=== PATIENT | female | born 1930 | race Caucasian/White ===

== ENCOUNTER → 2016-06-05 | Outpatient (REF) ==
[~2016-06-05] MED LIST: *BLDWK7; /ADVA50050; /ALEN70TA; /ALEN7SOL; /BACIOPOI; /GLYB5TA; /GUAIMAX PO; /MOXI40TA; /TIOT18INH; ACEP650S PR; ACET-71 PO; ACET30TAB PO; ACET500C; ACET650S3 PR; ACET65TA; ADV250INH INH; AKWASOL OU; ALBU0.084 INH; ALBU0.63 INH; ALBU83IN INH; ALBUTEROL; ALDA25TA2 PO; ALLO100T PO; AMLO10TAB; AMLO5TAB; ARTIDRO OU; ARTISOL10; ASP81 PO; ASPI81TA PO; ASPI81TA13 PO; ASPI81TA45 PO; ASPI81TA83; ASPI81TA85 PO; ATEN100T; AUGM875T27 PO; AVAP150T31 PO; AVAP75TA PO; BABY81CH; BACITAB; BACITAB3 PO; BARRIER CREAM TOP; BISA10SU2; BYSTOLIC; CALC600T68 PO; CALCCHW12; CAPT12.5; CARV12.5 PO; CARV3.12 PO; CARV6.25 PO; CEFD1CAP8 PO; CEFU12SS; CIPR500T4; CLOP75TA2 PO; COEN100C PO; COENZYME; COLA100C2; CORE3.12; CORE3.12 PO; COZA100T2 PO; COZA25TA8; DARV100T; DEMA20TA; DICL500C; DILT180C3; DILT240C3; DOCU100C PO; DULC10SU2 PR; DULC10SU9 PR; DUONSOL; DUONSOL INH; ENEMENE3 PR; ENEMENE6 PR; EUCECRE12 TOP; FELDENE20 PO; FISHCAP; FLAG500T; FLEETS ENEMA; FOSAMAX70 PO; GABA-279 PO; GABA300C3 PO; GABA300T; GABA600T3; GLIP5TAB2; GLUC1000; GLUC500T; GLUC5TAB; GLUC5TAB3; HCTZ25 PO; HYDR25TA6; HYDR25TA7; HYDR50TA8; INSUH10VL SC; INSULADS SC; INSULANT; INSULANT SC; INSULIN NPH; IPRASOL4 INH; K-TA10TA; KEFL500C7 PO; KLOR1TAB77 PO; LAB; LASI20TA; LASI40TA; LEVA250T PO; LEVE1INJ5 SC; LEVO250T PO; LIPI20TA; LISI20TA5; LISINOPR20 PO; LOPRESS50 PO; LOSA100T36 PO; LOSA50TA20 PO; LOTREL PO; MAG-TAB; MECL12.575 PO; METF500T4; MEVACOR PO; MILKSUS; MILKSUS PO; MOM30SS PO; MONISTAT; MUCINEX; MULTCAP PO; MULTTAB63 PO; MYLASUS6 PO; MYSO50TA; MYSO50TA5 PO; NEUR300C; NORT10CA2; NORVASC10 PO; NOVOLOG SC; NOVOLOG100 MG/ML; NYSTATIN OINT; OMEP20TA7; OSCAL PO; OXYGEN INH; OYST500T50 PO; PAIN325T; PLAV75TA2; POTA20TA PO; POTA20TA2; POTA20TA6 PO; POTASSIUM CHLORIDE; PRED10TA PO; PRED10TA2; PRED10TA2 PO; PRED20TA; PRED50TA; PRED5TAB; PRIL20CA; PROV90AE; RANI1TAB6 PO; SANTYL OINTMENT; SENN8.6T14; SENN8.6T28 PO; SILVADENE; SIMV20TA2; SLOWTAB; SORBITOL; SPIR1CAP INH; SPIR25TA2; SPIR25TA2 PO; SPIRIVA INH; SYSTANE; TORS20TA2 PO; TYL325; TYLE167L PO; TYLE325T5 PO; VENTAER; VICO5TA PO; VITA-122 PO; VITAD1000T PO; VITAMIN D; VITAMIN D50000 UNT; VITMTA PO; XANA0.25; XOPE1.252; ZANT150T; ZANT150T PO; ZESTORET20 PO; ZOCO20TA PO; ZOLOFT50 PO; ZOSTCRE TOP; [UNRECOGNIZED DRUG - CODE] PO; [UNRECOGNIZED DRUG - OTHER]; [UNRECOGNIZED DRUG - OTHER]; [UNRECOGNIZED DRUG - OTHER] PO; [UNRECOGNIZED DRUG - OTHER] PO; [UNRECOGNIZED DRUG - OTHER] TOP; [UNRECOGNIZED DRUG - OTHER] TOP; [UNRECOGNIZED DRUG - REMARK]; [UNRECOGNIZED DRUG - REMARK]; [UNRECOGNIZED DRUG - SUPPLY]
[2016-06-05 11:09] LABS: MEAN CORPUSCULAR HEMOGLOBIN 28.7 pg (27.0-33.0); MEAN CORPUSCULAR HGB CONC 32.6 g/dl (32.0-36.5); MEAN CORPUSCULAR VOLUME 88.1 fl (80.0-96.0); RED CELL DISTRIBUTION WIDTH 14.9 % (11.5-14.5); WHITE BLOOD COUNT 7.6 K/mm3 (4.0-10.0)
[2016-06-05 11:42] LABS: CALCIUM LEVEL 9.2 MG/DL (8.8-10.2); CREATININE FOR GFR 2.04 MG/DL (0.55-1.02); GLOMERULAR FILTRATION RATE 24.7 (>32); POTASSIUM SERUM 3.9 MEQ/L (3.5-5.1)
== END ==
PROVIDERS: ATTEND Internal Medicine
DX: J44.9 Chronic obstructive pulmonary disease, unspecified (principal)

== ENCOUNTER → 2016-06-10 | Outpatient (REF) ==
[2016-06-10 13:13] LABS: CALCIUM LEVEL 8.6 MG/DL (8.8-10.2); CREATININE FOR GFR 1.88 MG/DL (0.55-1.02); GLOMERULAR FILTRATION RATE 27.1 (>32); POTASSIUM SERUM 4.5 MEQ/L (3.5-5.1)
== END ==
PROVIDERS: ATTEND Internal Medicine
DX: N19 Unspecified kidney failure (principal)

== ENCOUNTER → 2016-06-26 | Outpatient (REF) | payer MEDICARE, MEDICAID ==
[2016-06-26 10:50] LABS: MEAN CORPUSCULAR HEMOGLOBIN 27.7 pg (27.0-33.0); MEAN CORPUSCULAR HGB CONC 31.4 g/dl (32.0-36.5); RED CELL DISTRIBUTION WIDTH 15.2 % (11.5-14.5); WHITE BLOOD COUNT 9.8 K/mm3 (4.0-10.0)
[2016-06-26 11:06] LABS: CALCIUM LEVEL 8.9 MG/DL (8.8-10.2); CREATININE FOR GFR 1.93 MG/DL (0.55-1.02); GLOMERULAR FILTRATION RATE 26.3 (>32)
== END ==
PROVIDERS: ATTEND Internal Medicine
DX: J44.9 Chronic obstructive pulmonary disease, unspecified (principal)

== ENCOUNTER → 2016-07-01 | Outpatient (REF) | payer MEDICARE, MEDICAID ==
[2016-07-01 12:33] LABS: CALCIUM LEVEL 8.5 MG/DL (8.8-10.2); CREATININE FOR GFR 1.8 MG/DL (0.55-1.02); GLOMERULAR FILTRATION RATE 28.5 (>32); POTASSIUM SERUM 4.6 MEQ/L (3.5-5.1)
== END ==
PROVIDERS: ATTEND Internal Medicine
DX: N17.9 Acute kidney failure, unspecified (principal)

== ENCOUNTER → 2016-07-09 | Outpatient (REF) | payer MEDICARE, MEDICAID ==
[2016-07-09 12:36] LABS: MEAN CORPUSCULAR HEMOGLOBIN 27.8 pg (27.0-33.0); MEAN CORPUSCULAR HGB CONC 31.5 g/dl (32.0-36.5); MEAN CORPUSCULAR VOLUME 88.3 fl (80.0-96.0); RED CELL DISTRIBUTION WIDTH 15.3 % (11.5-14.5); WHITE BLOOD COUNT 13.1 K/mm3 (4.0-10.0)
[2016-07-09 12:45] LABS: CALCIUM LEVEL 8.6 MG/DL (8.8-10.2); CREATININE FOR GFR 2.14 MG/DL (0.55-1.02); GLOMERULAR FILTRATION RATE 23.4 (>32); POTASSIUM SERUM 3.9 MEQ/L (3.5-5.1)
== END ==
PROVIDERS: ATTEND Internal Medicine
DX: I50.9 Heart failure, unspecified (principal); Z79.899 Other long term (current) drug therapy

== ENCOUNTER → 2016-07-10 | Outpatient (REF) | payer MEDICARE, MEDICAID ==
--- NOTE | 2016-07-10 16:29 | REP ---
AP chest, 07/10/2016, 03:54 p.m., single view: Comparisons 05/08/2016. Film quality is poor. I suspect there is a left perihilar infiltrate and I suspect there is discoid atelectasis inferiorly in the right lung. Interstitium is diffusely coarsened and mildly indistinct compatible with diffuse bilateral interstitial infiltrates. Cardiomegaly is again noted, unchanged. Signed by Bradley Marquis MD 07/10/2016 04:20 P
== END ==
PROVIDERS: ATTEND Internal Medicine
DX: J44.9 Chronic obstructive pulmonary disease, unspecified (principal)

== ENCOUNTER → 2016-07-24 | Outpatient (REF) | payer MEDICARE, MEDICAID ==
[2016-07-24 10:09] LABS: MEAN CORPUSCULAR HEMOGLOBIN 27.3 pg (27.0-33.0); MEAN CORPUSCULAR HGB CONC 31.1 g/dl (32.0-36.5); MEAN CORPUSCULAR VOLUME 87.7 fl (80.0-96.0); RED CELL DISTRIBUTION WIDTH 15.2 % (11.5-14.5); WHITE BLOOD COUNT 7.9 K/mm3 (4.0-10.0)
[2016-07-24 10:36] LABS: CALCIUM LEVEL 8.5 MG/DL (8.8-10.2); CREATININE FOR GFR 2.06 MG/DL (0.55-1.02); GLOMERULAR FILTRATION RATE 24.4 (>32); POTASSIUM SERUM 3.7 MEQ/L (3.5-5.1)
== END ==
PROVIDERS: ATTEND Internal Medicine
DX: J44.9 Chronic obstructive pulmonary disease, unspecified (principal)

== ENCOUNTER → 2016-08-13 | Outpatient (REF) | payer MEDICARE, MEDICAID ==
[2016-08-13 17:52] LABS: CALCIUM LEVEL 8.3 MG/DL (8.8-10.2); CREATININE FOR GFR 2.18 MG/DL (0.55-1.02); GLOMERULAR FILTRATION RATE 22.9 (>32)
[2016-08-13 18:45] LABS: MEAN CORPUSCULAR HGB CONC 31.4 g/dl (32.0-36.5); MEAN CORPUSCULAR VOLUME 89.1 fl (80.0-96.0); RED CELL DISTRIBUTION WIDTH 15.5 % (11.5-14.5); WHITE BLOOD COUNT 6.9 K/mm3 (4.0-10.0)
== END ==
PROVIDERS: ATTEND Internal Medicine
DX: K92.1 Melena (principal)

== ENCOUNTER → 2016-08-14 | Outpatient (REF) | payer MEDICARE, MEDICAID ==
[2016-08-14 12:54] LABS: MEAN CORPUSCULAR HEMOGLOBIN 27.7 pg (27.0-33.0); MEAN CORPUSCULAR HGB CONC 31.2 g/dl (32.0-36.5); MEAN CORPUSCULAR VOLUME 88.9 fl (80.0-96.0); RED CELL DISTRIBUTION WIDTH 15.6 % (11.5-14.5)
== END ==
PROVIDERS: ATTEND Internal Medicine
DX: K92.1 Melena (principal)

== ENCOUNTER → 2016-08-15 | Outpatient (REF) | payer MEDICARE, MEDICAID ==
[2016-08-15 10:12] LABS: MEAN CORPUSCULAR HEMOGLOBIN 27.1 pg (27.0-33.0); MEAN CORPUSCULAR HGB CONC 30.7 g/dl (32.0-36.5); MEAN CORPUSCULAR VOLUME 88.3 fl (80.0-96.0); RED CELL DISTRIBUTION WIDTH 15.5 % (11.5-14.5); WHITE BLOOD COUNT 7.4 K/mm3 (4.0-10.0)
[2016-08-15 10:26] LABS: PERCENT SATURATION 8.7 % (13.2-37.4)
== END ==
PROVIDERS: ATTEND Internal Medicine
DX: K92.1 Melena (principal)

== ENCOUNTER → 2016-08-16 | Outpatient (REF) | payer MEDICARE, MEDICAID ==
[2016-08-16 10:43] LABS: MEAN CORPUSCULAR HEMOGLOBIN 27.6 pg (27.0-33.0); MEAN CORPUSCULAR HGB CONC 31.2 g/dl (32.0-36.5); MEAN CORPUSCULAR VOLUME 88.4 fl (80.0-96.0); RED CELL DISTRIBUTION WIDTH 15.7 % (11.5-14.5); WHITE BLOOD COUNT 7.6 K/mm3 (4.0-10.0)
== END ==
PROVIDERS: ATTEND Internal Medicine
DX: K92.1 Melena (principal)

== ENCOUNTER → 2016-08-22 | Outpatient (REF) | payer MEDICARE, MEDICAID ==
[~2016-08-22] MED LIST changes: +AMLO10TA PO; +GABA-282 PO; -GABA300C3 PO
[2016-08-22 14:17] LABS: CALCIUM LEVEL 8.4 MG/DL (8.8-10.2); CREATININE FOR GFR 1.86 MG/DL (0.55-1.02); GLOMERULAR FILTRATION RATE 27.5 (>32); POTASSIUM SERUM 4.5 MEQ/L (3.5-5.1)
--- NOTE | 2016-08-22 16:26 | REP ---
CHEST: Single AP view of the chest was performed and compared to prior studies, most of recent of which is 07/10/2016. Cardiomegaly and vascular congestion is unchanged as well as prominent interstitial markings. Once again there is mild bibasilar atelectasis/infiltrate, appearing similar to the prior exam. There is calcification and ectasia of the thoracic aorta. Patient is rotated toward the right. IMPRESSION: Similar findings compared to prior studies as discussed above, with CHF pattern and bibasilar atelectasis/infiltrate. Signed by Bradley Cardenas MD 08/23/2016 01:22 P
== END ==
PROVIDERS: ATTEND Internal Medicine
DX: I50.9 Heart failure, unspecified (principal); R05 Cough; R06.2 Wheezing

== ENCOUNTER → 2016-08-26 | Outpatient (REF) | payer MEDICARE, MEDICAID ==
[~2016-08-26] MED LIST changes: -AMLO10TA PO; -GABA-282 PO; +GABA300C3 PO
[2016-08-26 13:58] LABS: MEAN CORPUSCULAR HEMOGLOBIN 27.4 pg (27.0-33.0); MEAN CORPUSCULAR HGB CONC 30.7 g/dl (32.0-36.5); MEAN CORPUSCULAR VOLUME 89.2 fl (80.0-96.0); RED CELL DISTRIBUTION WIDTH 15.7 % (11.5-14.5); WHITE BLOOD COUNT 8.8 K/mm3 (4.0-10.0)
[2016-08-26 14:00] LABS: CALCIUM LEVEL 8.8 MG/DL (8.8-10.2); CREATININE FOR GFR 2.29 MG/DL (0.55-1.02); GLOMERULAR FILTRATION RATE 21.6 (>32); POTASSIUM SERUM 4.5 MEQ/L (3.5-5.1)
== END ==
PROVIDERS: ATTEND Internal Medicine
DX: I50.9 Heart failure, unspecified (principal)

== ENCOUNTER 2016-09-12 12:40 | Emergency (ER) | payer MEDICARE, MEDICAID ==
[~2016-09-12] VITALS: Ht 152.4 cm; Wt 82.6 kg
[~2016-09-12 12:40] MED LIST changes: +GABA-282 PO; -GABA300C3 PO
[2016-09-12] MEDS ORDERED: AMLO10TA PO (12:55)
[2016-09-12] MEDS ORDERED: ONDANSETRON 4MG/2ML VIAL (J2405) IV ONE (13:45)
[2016-09-12] MEDS ORDERED: MORPHINE 2 MG/ML 1ML SYRINGE IV PRN (13:45)
[2016-09-12 14:07] LABS: ALBUMIN 3.8 GM/DL (3.2-5.2); ALBUMIN/GLOBULIN RATIO 1.27 (1.00-1.93); BILIRUBIN,DIRECT 0.1 MG/DL (0.0-0.2); BILIRUBIN,TOTAL 0.4 MG/DL (0.2-1.0); CALCIUM LEVEL 9.2 MG/DL (8.8-10.2); CREATININE FOR GFR 2.09 MG/DL (0.55-1.02); POTASSIUM SERUM 4.7 MEQ/L (3.5-5.1); TOTAL PROTEIN 6.8 GM/DL (6.4-8.2)
[2016-09-12 14:14] LABS: BASO % 0.4 % (0.0-1.0); EOS # 0.1 K/mm3 (0.0-0.50); EOS % 1.7 % (0.0-3.0); LARGE UNSTAINED CELL # 0.1 K/mm3 (0.0-0.4); LYMPH # 1.4 K/mm3 (1.5-4.5); LYMPH % 14.8 % (24.0-44.0); MEAN CORPUSCULAR HGB CONC 31.3 g/dl (32.0-36.5); MEAN CORPUSCULAR VOLUME 89.4 fl (80.0-96.0); MONO # 0.6 K/mm3 (0.0-0.8); MONO % 6.5 % (0.0-5.0); NEUTROPHILS # 6.5 K/mm3 (1.8-7.7); NEUTROPHILS % 75.6 % (36.0-66.0); PLATELET COUNT, AUTOMATED 186 k/mm3 (150-450); RED CELL DISTRIBUTION WIDTH 16.5 % (11.5-14.5); WHITE BLOOD COUNT 8.6 K/mm3 (4.0-10.0)
--- NOTE | 2016-09-12 15:47 | REP ---
Acute abdominal series series including PA chest and supine upright abdomen: PA chest: Comparison is 02/26/2016. There is chronic cardiomegaly, unchanged. The visualized lung schulz are clear. No pleural effusions. There is no free subdiaphragmatic air. Impression: Chronic cardiomegaly. Abdomen, supine upright views: There is severe scoliosis convex right in the lower thoracic spine and left in the lumbar spine. The bowel gas pattern is normal. There are no unusual calcifications. The skeletal structures and soft tissues are otherwise unremarkable. Impression: Normal bowel gas pattern. Signed by Bradley Marquis MD 09/12/2016 03:38 P
[2016-09-12] MEDS ORDERED: GASTROGRAFIN SOLUTION 30ML PO ONE (16:50)
[2016-09-12] MEDS ORDERED: GASTROGRAFIN SOLUTION 30ML (Q9963) PO ONE (17:20)
--- NOTE | 2016-09-12 19:50 | REPUSA ---
CT of the abdomen and pelvis without contrast Clinical statement: Pain. Technique: Multiple axial CT images were obtained from the base of the lungs to the floor of the pelv is utilizing 5 mm axial slices after administration of oral contrast only. Coronal and sagittal recon structions were also obtained. Comparison: 05/10/2016. Findings: Chest: There is linear atelectasis in the left lower lobe. There is a moderate sized hiatal hernia. Abdomen: The left kidney is normal in size. Chronic atrophy of the right kidney is stable. There is n o evidence of hydronephrosis or nephrolithiasis. Several small densities are seen in the dependent po rtion gallbladder. The liver, spleen, pancreas, and adrenal glands are unremarkable. The aorta demons trates extensive diffuse atherosclerosis, with normal caliber and contour. There is no abdominal lym phadenopathy or ascites. Pelvis: The bowel is unremarkable, with no obstructive or inflammatory changes. However, diffuse dive rticulosis is stable. The urinary bladder is within normal limits. There is no pelvic lymphadenopathy or ascites. The other pelvic structures appear unremarkable. Bones: There are no suspicious osseous abnormalities seen. Severe levoscoliosis of the lumbar spine i s noted. There is a chronic healed fracture of the right inferior pubic ramus. Impression: 1. No acute finding explain the patient's pain. 2. Extensive diffuse diverticulosis without evidence of diverticulitis. No obstructive or inflammator y bowel changes. 3. Cholelithiasis without evidence of acute cholecystitis. 4. Chronic atrophy of the right kidney which is stable. No evidence of hydronephrosis or nephrolithia sis. 5. Severe scoliosis and multilevel degenerative disc disease. 6. Linear atelectasis in the left lower lung. 7. Moderate sized hiatal hernia.
[2016-09-12 21:10] VITALS: BP 186/92
== END 2016-09-12 22:03 | disposition home or self-care (01) ==
LOC: M ED 14:36
DX: K80.20 Calculus of gallbladder without cholecystitis without obstruction (principal); E11.9 Type 2 diabetes mellitus without complications; I12.9 Hypertensive chronic kidney disease with stage 1 through stage 4 chronic kidney disease, or unspecified chronic kidney disease; I50.9 Heart failure, unspecified; N18.9 Chronic kidney disease, unspecified; I25.10 Atherosclerotic heart disease of native coronary artery without angina pectoris; Z79.899 Other long term (current) drug therapy; Z79.51 Long term (current) use of inhaled steroids; Z88.8 Allergy status to other drugs, medicaments and biological substances; Z91.018 Allergy to other foods

== ENCOUNTER 2016-09-14 11:16 | Inpatient (IN) | payer MEDICARE, MEDICAID ==
[~2016-09-14] VITALS: Ht 152.4 cm; Wt 84.0 kg
[~2016-09-14 11:16] MED LIST changes: +AMLO10TA PO
[2016-09-14] MEDS ORDERED: FERR325T3 PO (11:57)
[2016-09-14] MEDS ORDERED: OMEP40CA2 PO (11:57)
[2016-09-14] MEDS ORDERED: methylPREDNISolone INJ 40 MG/1 ML VIAL (J2920) IV ONE (13:00)
[2016-09-14] MEDS ORDERED: ALBUTEROL SULFATE 2.5 MG/0.5 ML INH NEB SOLN INH ONE (13:00)
[2016-09-14] MEDS ORDERED: methylPREDNISolone INJ 125 MG/2 ML VIAL (J2930) IV ONE (13:00)
[2016-09-14] MEDS ORDERED: IPRATROPIUM 0.5MG/ALBUTEROL 2.5MG INH SOL UD 3ML (DUONEB)(J7620) NEB ONE (13:00)
[2016-09-14 13:02] LABS: BASO % 0.3 % (0.0-1.0); EOS # 0.1 K/mm3 (0.0-0.50); EOS % 1.1 % (0.0-3.0); LARGE UNSTAINED CELL # 0.1 K/mm3 (0.0-0.4); LARGE UNSTAINED CELL % 1.2 % (0.0-4.0); LYMPH # 1.3 K/mm3 (1.5-4.5); LYMPH % 11.4 % (24.0-44.0); MEAN CORPUSCULAR HEMOGLOBIN 26.7 pg (27.0-33.0); MEAN CORPUSCULAR HGB CONC 29.9 g/dl (32.0-36.5); MEAN CORPUSCULAR VOLUME 89.3 fl (80.0-96.0); MONO # 0.7 K/mm3 (0.0-0.8); MONO % 6.5 % (0.0-5.0); NEUTROPHILS # 8.4 K/mm3 (1.8-7.7); NEUTROPHILS % 79.6 % (36.0-66.0); PLATELET COUNT, AUTOMATED 184 k/mm3 (150-450); RED CELL DISTRIBUTION WIDTH 16.5 % (11.5-14.5); WHITE BLOOD COUNT 10.6 K/mm3 (4.0-10.0)
[2016-09-14 13:20] LABS: ALBUMIN 3.4 GM/DL (3.2-5.2); ALBUMIN/GLOBULIN RATIO 1.13 (1.00-1.93); BILIRUBIN,TOTAL 0.5 MG/DL (0.2-1.0); CALCIUM LEVEL 8.5 MG/DL (8.8-10.2); CREATININE FOR GFR 2.24 MG/DL (0.55-1.02); GLOMERULAR FILTRATION RATE 22.2 (>32); POTASSIUM SERUM 4.9 MEQ/L (3.5-5.1); TOTAL PROTEIN 6.4 GM/DL (6.4-8.2)
[2016-09-14 13:27] LABS: ABG BASE EXCESS 11.4 (-2.0-2.0); ABG HCO3 39.6 MEQ/L (22.0-26.0); ABG PARTIAL PRESSURE O2 99.7 mmHg (75.0-100.0); ABG STANDARD HCO3 35.1 MEQ/L (22.0-26.0); ABG TOTAL CO2 41.8 MEQ/L (23.0-31.0); ABG pH (ARTERIAL) 7.363 UNITS (7.350-7.450)
[2016-09-14 13:31] LABS: ABG PARTIAL PRESSURE CO2 71.2 mmHg (35.0-45.0)
--- NOTE | 2016-09-14 14:29 | REP ---
Dyspnea. COMPARISON: Frontal view obtained as a part of an abdominal series 09/12/2016. The technique utilized in obtaining the radiograph has magnified the cardiac silhouette and accentuated the interstitial markings. There is no change from the prior exam other than technique. There is global cardiomegaly and interstitial fibrosis. There is no plain radiographic evidence of acute cardiopulmonary disease on this limited portable exam. Signed by Will Mcclellan DO 09/14/2016 02:32 P
--- NOTE | 2016-09-14 14:34 | REP ---
REASON: Altered mental status. COMPARISON: 05/19/2015 There is no significant change in the appearance of the ventricles or sulci. There is no significant change in the appearance of the deep cerebral white matter. A few lucencies are noted status quo with evidence of old lacunar infarctions. All findings stable. There is no evidence of an acute intracranial, hemorrhagic, or nonhemorrhagic event. There is no skull fracture. The imaged paranasal sinuses and mastoid air cells remain clear. IMPRESSION: Old lacunar infarctions. Small vessel ischemic disease and atrophy status quo. Signed by Will Mcclellan DO 09/14/2016 02:45 P
--- NOTE | 2016-09-14 14:49 | REP ---
REASON: Right lower quadrant pain. COMPARISON: 09/12/2016 Lack of intravenous and old bowel preparatory contrast agents significantly decreased the sensitivity of the exam. There is no change in the lung bases. There is chronic fibrotic change and subsegmental atelectatic change with pleural thickening and cardiomegaly . Limited evaluation of the solid intra-abdominal organs show no significant changes from the prior exam. Note is again made of cholelithiasis. There is a hiatal hernia status quo. The pancreas, abdominal glands, and kidneys are unchanged. There is marked right renal atrophy. The abdominal aorta and para-aortic regions are unchanged. There is aortic tortuosity and calcific atherosclerotic change status quo. There is residual contrast in the large intestine from the previous oral ingestion performed 09/12/2016. There is no free fluid or free air in the abdomen. There is colonic diverticulosis. CT PELVIS: Extensive diverticulosis. No free fluid or free air. In the right adnexa, there is a 5.2 cm sized cystic mass, which is essentially unchanged. This has water Hounsfield unit readings. It is unchanged not only from the latest prior CT but for multiple older CTs. Bone window technique throughout the exam shows the bones to be demineralized with chronic changes, status quo. IMPRESSION: Chronic changes as described above. Known cholelithiasis and right renal atrophic change. Known unchanged right adnexal cyst. There is no evidence of acute intra-abdominal or intrapelvic disease. Findings as described above. Chronic lung base changes as well. Signed by Will Mcclellan DO 09/14/2016 03:52 P
[2016-09-14] MEDS ORDERED: FUROSEMIDE 40 MG/4 ML VIAL (J1940) IV ONE (15:00)
--- NOTE | 2016-09-14 15:23 | REP ---
REASON: Pain and swelling with dyspnea. DEEP VENOUS ULTRASONOGRAPHY BILATERAL THIGHS, RULE OUT DVT: TECHNIQUE: Multiple ultrasonographic images of the deep venous structures of the thighs were obtained from the common femoral vein to the popliteal vein along with Doppler interrogation and color flow Doppler images. FINDINGS: There is no abnormal echogenic material seen within any of the visualized deep venous structures that would suggest acute thrombosis. Coaptation is unremarkable throughout. Doppler interrogation shows an expected response to respiratory variability and augmentation. The color flow images show what appears to be a normal vascular pattern throughout. IMPRESSION: There is no ultrasonographic evidence of deep venous thrombosis involving any of the visualized deep venous structures of the bilateral thighs, as described above.? Signed by Will Mcclellan DO 09/14/2016 03:52 P
[2016-09-14] MEDS ORDERED: SENN8.6T7 PO (15:27)
[2016-09-14] MEDS ORDERED: TORS20TA2 PO (15:27)
[2016-09-14] MEDS ORDERED: LIDO1OIN2 TOP (15:27)
[2016-09-14] MEDS ORDERED: TYLE500T78 PO (15:27)
[2016-09-14] MEDS ORDERED: TYLE325T5 PO (15:36)
[2016-09-14] MEDS ORDERED: SENN8.6T10 PO (15:36)
[2016-09-14] MEDS ORDERED: ALBU83IN INH (15:36)
[2016-09-14 16:00] VITALS: BP 177/80
[2016-09-14] MEDS ORDERED: IPRATROPIUM 0.5MG/ALBUTEROL 2.5MG INH SOL UD 3ML (DUONEB)(J7620) NEB PRN (17:45)
[2016-09-14] MEDS ORDERED: CAPSAICIN 0.025% CR 60 GM TOP PRN (17:45)
[2016-09-14] MEDS ORDERED: ACETAMINOPHEN 650 MG SUPP PR PRN (17:45)
[2016-09-14] MEDS ORDERED: GLUCAGON FOR INJ 1 MG VIAL (J1610) SC PRN (17:45)
[2016-09-14] MEDS ORDERED: DEXTROSE 50% 50 ML SYRINGE IV PRN (17:45)
[2016-09-14] MEDS ORDERED: BISACODYL 10 MG SUPP PR PRN (17:45)
[2016-09-14] MEDS ORDERED: GLUCOSE 4 GM CHEW TABLET PO PRN (17:45)
--- NOTE | 2016-09-14 17:53 | PMRHPE ---
DATE OF ADMISSION: 09/14/2016 PRIMARY CARE PROVIDER: Dr. Bernstein. REASON FOR ADMISSION: Shortness of breath. HISTORY OF PRESENT ILLNESS: The patient is an 85-year-old female who presented to the emergency room with her daughter with shortness of breath. The patient has a past medical history significant for hypertension, hyperlipidemia, congestive heart failure, dementia, chronic kidney disease. She was seen in the emergency room two days ago complaining of shortness of breath. She was diagnosed with possible gallstones. No cholecystitis. She continued to have some swelling in her legs. She has history of diastolic congestive heart failure. She was found to have elevated brain natriuretic peptide (BNP) as well as elevated troponin. The patient was admitted under hospitalist service. REVIEW OF SYSTEMS: Unable to obtain due to the patient's confusion. PAST MEDICAL HISTORY: Significant for: 1. Diabetic neuropathy. 2. Type 2 diabetes. 3. Chronic obstructive pulmonary disease (COPD). 4. Congestive heart failure, diastolic. 5. Dementia. 6. Chronic kidney disease. 7. Hypertension. 8. Hyperlipidemia. 9. Coronary artery disease. PAST SURGICAL HISTORY: Significant for: 1. Cardiac stents. 2. Total hysterectomy. 3. Esophageal dilation times two. 4. Tonsillectomy. 5. Appendectomy. ALLERGIES TO MEDICATIONS: None. SOCIAL HISTORY: The patient used to smoke 20 years ago. Alcohol use, none. Currently lives in [place]. FAMILY HISTORY: noncontributory. MEDICATIONS: - Tylenol 650 mg every four hours as needed for pain or fevers - Tylenol 500 mg by mouth three times a day - Tylenol as needed every four hours for pain or fever - (please clarify) 2.5 inhaled every two hours as needed for shortness of breath - allopurinol 100 mg by mouth daily - Norvasc 10 mg by mouth daily - aspirin 81 mg by mouth daily - Dulcolax 10 mg per rectum daily as needed for constipation - capsaicin as needed for pain - carvedilol 3.125 mg by mouth twice a day - vitamin D3 2000 units by mouth twice a day - senna one tablet by mouth daily - enema as needed for constipation - iron 325 mg by mouth daily - gabapentin 100 mg by mouth twice a day - insulin six units subcutaneously daily - Levemir 10 units at bedtime and 20 in the morning - Lidoderm topically three times a day applied to great toe - milk of magnesia 30 mL by mouth as needed for constipation - omeprazole 40 mg at bedtime - prednisone 10 mg by mouth daily - ranitidine one tablet by mouth twice a day - Advair Diskus one puff inhaled twice a day - senna two tablets by mouth at bedtime - spironolactone 25 mg by mouth daily - torsemide 20 mg by mouth twice a day. PHYSICAL EXAMINATION: VITAL SIGNS: Temperature 99.9, pulse 96, respiratory 28, blood pressure is 174/61, pulse oximetry 95% on room air. HEENT: Pupils equal, round, reactive to light and accommodation. NECK: Supple. No jugular venous distention (JVD). LUNGS: Diminished breath sounds in all lung schulz. ABDOMEN: Obese. Nontender, nondistended. EXTREMITIES: +1 edema bilaterally. CARDIAC: Regular rate and rhythm. LABORATORY FINDINGS: WBC 10.6, hemoglobin 11.4, hematocrit 38, platelet count 165. Sodium 139, potassium 4.9, chloride 96, BUN 42, creatinine 2.24. Lactic acid 1.5. BNP 894. ASSESSMENT AND PLAN: 1. Shortness of breath likely secondary due to congestive heart failure. Will continue the patient's diuretics and will start the patient on intravenous (IV) Lasix. Continue intake and output and daily weights. Will put in the Farias to monitor intake and output. 2. History of chronic obstructive pulmonary disease (COPD). Continue the patient's oxygen. The patient is normally on two liters of oxygen all the time. Currently requiring four liters. Will continue DuoNeb as needed and scheduled. 3. History of type 2 diabetes. Continue insulin sliding scale, Accu-Chek before meals and at bedtime, Levemir twice a day, and consistent carbohydrate diet. 4. History of dementia. 5. Chronic kidney disease. 6. Hyperlipidemia. 7. Hypertension. 8. Coronary artery disease status post cardiac stenting with a mild elevation of troponin. Will continue to monitor. The patient denies any chest pain at this time. No electrocardiogram (EKG) changes. Dr. Keita was contacted from the emergency room but not officially consulted. He stated it is likely secondary to congestive heart failure, to continue to monitor the patient. 8. Deep venous thrombosis (DVT) prophylaxis. Sequential compression devices (SCDs) while in bed.
[2016-09-14] MEDS: HumaLOG INSULIN (NovoLOG) PER UNIT SC SCH ×2 (18:13→21:00)
[2016-09-14] MEDS: OMEPRAZOLE 20 MG CAP PO SCH (18:16)
--- NOTE | 2016-09-14 19:00 | REPUSA ---
PLEASE CHECK ONE BLANK CLINICAL HISTORY: Shortness of breast. TECHNIQUE: Multiple axial CT images were obtained through the thorax without IV contrast material. COMMENTS: There is no evidence of pleural or parenchymal-based mass. There are no pleural effusions. There is no evidence of hilar or mediastinal lymphadenopathy. The heart is severely enlarged and pulmonary v enous congestive changes are present. Diffuse coronary calcifications are present. Central pulmonar y arterial tree is dilated demonstrating compatible with pulmonary arterial hypertension. Car diac calcifications are seen. There is pleural thickening with trace bilateral pleural effusions not ed. Cholelithiasis is present. Right kidney is severely atrophic and left kidney is not imaged. The visualized portions of the liver are of uniform attenuation without mass or defect. There is no intra or extrahepatic biliary ductal dilatation. The spleen is unremarkable. The visualized pancrea s is of normal contour and attenuation characteristics. There is no evidence of adrenal mass. The v isualized portions of the kidneys present no abnormalities. The bony structures are free of lytic or blastic lesions. There is severe dextroscoliosis present ap ex in mid to lower thoracic spine. IMPRESSION: 1. Cardiomegaly. 2. Evidence of CHF. 3. Pulmonary arterial hypertension. Thank you for your kind referral of this patient. We appreciate the opportunity to participate in thi s patient's care.
[2016-09-14] MEDS: IPRATROPIUM 0.5MG/ALBUTEROL 2.5MG INH SOL UD 3ML (DUONEB)(J7620) NEB SCH (20:00)
[2016-09-14] MEDS: GABAPENTIN 100 MG CAP PO SCH (20:23)
[2016-09-14] MEDS: ADVAIR DISKUS 250/50 INH PWD INH SCH (21:16)
[2016-09-14] MEDS: CARVedilol 3.125 MG TAB PO SCH (21:18)
[2016-09-14] MEDS: LIDOCAINE 5% OINT 30 GM TOP SCH (21:19)
[2016-09-14] MEDS: LEVEMIR (INSULIN DETEMIR) 1 UNITS/0.01ML SC SCH (21:20)
[2016-09-14] MEDS ORDERED: SLF 3 ML SYR IV PRN (23:00)
[2016-09-14 23:08] VITALS: BP 173/79
[2016-09-14 23:15] VITALS: BP 173/79
[2016-09-14] MEDS: FUROSEMIDE 40 MG/4 ML VIAL (J1940) IV SCH (23:38)
[2016-09-14] MEDS: SLF 3 ML SYR IV SCH (23:39)
[2016-09-15] VITALS: BP 173/79
[2016-09-15] MEDS: IPRATROPIUM 0.5MG/ALBUTEROL 2.5MG INH SOL UD 3ML (DUONEB)(J7620) NEB SCH ×4 (03:21→20:00)
[2016-09-15 04:00] VITALS: BP 155/70
[2016-09-15 04:55] LABS: BASO % 0.1 % (0.0-1.0); EOS # 0.1 K/mm3 (0.0-0.50); EOS % 1.5 % (0.0-3.0); LARGE UNSTAINED CELL % 0.6 % (0.0-4.0); LYMPH # 0.8 K/mm3 (1.5-4.5); LYMPH % 12.9 % (24.0-44.0); MEAN CORPUSCULAR HGB CONC 31.4 g/dl (32.0-36.5); MEAN CORPUSCULAR VOLUME 89.3 fl (80.0-96.0); MONO # 0.2 K/mm3 (0.0-0.8); MONO % 2.8 % (0.0-5.0); NEUTROPHILS # 4.8 K/mm3 (1.8-7.7); NEUTROPHILS % 82.2 % (36.0-66.0); PLATELET COUNT, AUTOMATED 165 k/mm3 (150-450); RED CELL DISTRIBUTION WIDTH 16.6 % (11.5-14.5); WHITE BLOOD COUNT 5.8 K/mm3 (4.0-10.0)
[2016-09-15 05:12] LABS: MAGNESIUM LEVEL 2.7 MG/DL (1.8-2.4)
[2016-09-15 07:41] LABS: ALBUMIN 3.2 GM/DL (3.2-5.2); CALCIUM LEVEL 8.9 MG/DL (8.8-10.2); CREATININE FOR GFR 2.17 MG/DL (0.55-1.02); PHOSPHORUS LEVEL 3.5 MG/DL (2.5-4.9); POTASSIUM SERUM 4.1 MEQ/L (3.5-5.1)
--- NOTE | 2016-09-15 07:46 | IPN ---
DATE: 09/15/2016 85-year-old female seen at bedside. No overnight issues reported. She was admitted yesterday afternoon due to hypoxia and what appeared to be volume overload, elevated BNP and a slight increase in her troponin which was felt to be related to her volume overload state. She does have a history of dementia. She is currently on BiPAP. I am unable to get much of a history from her here at bedside, there is no family present. I did place a phone call through to her daughter Mariama and I am waiting to hear back from her as well. OBJECTIVE: Temperature is 98.2, pulse 89, respiratory rate is 23, blood pressure (BP) 155/70, SPO2 is 92% on 4 liters with BiPAP. HEENT: Head is atraumatic, normocephalic. Eyes: Pupils equal, reactive to light and accommodation (KARLI). Throat clear. Neck: Supple. Unable to investment trader jugular venous distention (JVD) due to body habitus. Lungs: Diminished bibasilar, occasional expiratory wheeze. Heart: Regular rate and rhythm. Abdomen is obese, soft, nontender. Positive bowel sounds. No masses. Extremities: Trace edema at the ankles. No calf tenderness. LABORATORY DATA: White count is 5.8, hemoglobin 11.6 and platelets are 165,000. BMP is pending this morning. Her troponin has cycled at 0.26, 0.25 and 0.22. Her BNP on admission was 894. Chest CT was evident of cardiomegaly, CHF, pulmonary artery hypertension. No acute infiltrate or consolidations noted. CT of the abdomen and pelvis: Chronic changes were described. Known cholelithiasis. Right renal atrophic changes. Known right adnexal cyst. No evidence of acute intra-abdominal or intrapelvic findings. Chronic lung base changes were seen as well. Head CT did demonstrate old lacunar infarcts, small vessel ischemic disease and atrophy. but no acute findings. Venous Duplex ultrasound of the lower extremities with no evidence of deep vein thrombosis (DVT). ASSESSMENT/PLAN: 1. Shortness of breath with acute hypoxia superimposed on volume overload status. Will continue to diurese her with net negative Lasix, fluid restrictions and monitoring. Strict ins and outs. She has had greater than 450 mL of urine output since midnight. Will continue with the Farias catheter for the time being since she does have severe dementia and altered mental status so that we can monitor strict ins and outs. 2. History of COPD. She does have expiratory wheeze. Will continue with nebulizers scheduled and as needed (p.r.n.) with supplemental oxygen as well. 3. Presumed history of congestive heart failure (CHF) with underlying history of coronary artery disease and cardiac stenting. Mild elevation of troponin according to the history and physical (H and P). Dr. Keita was contacted by the emergency department, but not officially consulted. There were no electrocardiogram (EKG) changes. Her troponin is stable for the time being. I did place a call through to her daughter, Mariama, who is the healthcare proxy to did discuss goals of therapy for the time being and it does sound like we are looking at more of a medical management. She is currently a DO NOT RESUSCITATE/DO NOT INTUBATE (DNR/DNI), but will discuss further with her healthcare proxy. 4. Type 2 diabetes. Continue sliding scale, Accu-Cheks, consistent carb diet, with sliding scale coverage and Levemir twice daily. 5. History of dementia. She does appear to have some superimposed metabolic encephalopathy, perhaps on top of her dementia. I would like to get a better feel for this by discussing with her daughter what her baseline is. 6. Chronic kidney disease (CKD) stage IV, stable. 7. Hyperlipidemia. Continue statin. 8. Hypertension. Will continue to monitor and adjust medications as needed. 9. DVT prophylaxis, currently on thromboembolic deterrent stockings (TEDS) and sequentials. DISPOSITION: The patient does appear to be quite ill with her hypoxia and volume overload status. Her elevated troponin is most likely due to the volume overload as well superimposed on CKD. Due to her multiple comorbidities combined with dementia, she is a [facility] resident and she is requiring BiPAP with supplemental oxygen and had a bump in her troponin. Her prognosis is guarded at this point. Again, she does have a DNR/DNI on the chart and we do want to respect her wishes. I would like to get a better feel with her family members with the expectation of treatment goals are and respect their wishes as well. ADDENDUM: Ms. Gallagher did have a 2-D echo that was performed May 2016. She had a left ventricular ejection fraction of 75% at that time. The study did demonstrate normal left ventricular size with mild left ventricular hypertrophy, hyperdynamic left ventricular systolic function, and grade 1 diastolic dysfunction. Tricuspid aortic valve was sclerotic with mild stenosis. Very prominent degenerative abnormalities of mitral valve were noted and associated mitral annular calcifications, probable mild mitral stenosis, normal central venous pressure, but was unable to estimate pulmonary artery pressures at that time. ADDENDUM 09/15/2016 aml Ms. Gallagher does have a history of chronic kidney disease with a baseline creatinine of 1.9 to 2. Her creatinine on admission last evening did spike to 2.24. Will continue to follow. This does appear to be trending back towards her baseline. She nonetheless does appear to be volume overloaded. We will plan on net negative Lasix, and keep a close eye on her weight, as well as intake and output (I and O). DENNIS
[2016-09-15 08:00] VITALS: BP 159/76
[2016-09-15] MEDS: HumaLOG INSULIN (NovoLOG) PER UNIT SC SCH ×4 (08:04→21:57)
[2016-09-15] MEDS: ADVAIR DISKUS 250/50 INH PWD INH SCH ×2 (08:33→19:58)
[2016-09-15] MEDS: FUROSEMIDE 40 MG/4 ML VIAL (J1940) IV SCH ×2 (08:54→16:49)
[2016-09-15] MEDS: LIDOCAINE 5% OINT 30 GM TOP SCH ×3 (08:54→21:00)
[2016-09-15] MEDS: LEVEMIR (INSULIN DETEMIR) 1 UNITS/0.01ML SC SCH ×2 (08:54→21:57)
[2016-09-15] MEDS: predniSONE 10 MG TAB PO SCH (08:54)
[2016-09-15] MEDS: amLODIPine 10 MG TAB PO SCH (08:55)
[2016-09-15] MEDS: SPIRONOLACTONE 25 MG TAB PO SCH (08:55)
[2016-09-15] MEDS: FERROUS SULFATE 325MG TAB PO SCH (08:55)
[2016-09-15] MEDS: CARVedilol 3.125 MG TAB PO SCH ×2 (08:56→21:55)
[2016-09-15] MEDS: ASPIRIN 81 MG ENTERIC TAB PO SCH (08:56)
[2016-09-15] MEDS: SENOKOT S TAB PO SCH (08:56)
[2016-09-15] MEDS: GABAPENTIN 100 MG CAP PO SCH ×2 (09:00→21:56)
--- NOTE | 2016-09-15 09:19 | ECGEPIP ---
Stationary ECG Study [facility] - ED Test Date: 2016-09-14 Pat Name: ADDI ALVARADO Department: Room: - Gender: F [employer] Principal: ct : 1930 Requested By: Lindsey Farah Order Number: [id number] Reading MD: Chanda Elizondo Measurements Intervals [place] Rate: 94 P: 90 MT: 173 QRS: -6 QRSD: 108 T: 100 QT: 370 QTc: 465 Interpretive Statements SINUS RHYTHM MODERATE T-WAVE ABNORMALITY, CONSIDER LATERAL ISCHEMIA INCREASED RATE 05/08/16 Electronically Signed On 09-15-2016 9:18:39 EDT by Chanda Elizondo
[2016-09-15 12:00] VITALS: BP 179/86
[2016-09-15] MEDS: SLF 3 ML SYR IV SCH ×2 (14:00→21:58)
[2016-09-15 16:00] VITALS: BP 176/86
[2016-09-15] MEDS: OMEPRAZOLE 20 MG CAP PO SCH (18:19)
[2016-09-15 20:00] VITALS: BP 175/78
[2016-09-16] VITALS (14 sets, daily range): BP systolic 169–210; BP diastolic 72–110
[2016-09-16] MEDS: SLF 3 ML SYR IV SCH ×3 (00:02→21:06)
[2016-09-16] MEDS: FUROSEMIDE 40 MG/4 ML VIAL (J1940) IV SCH ×3 (00:03→14:53)
[2016-09-16] MEDS: IPRATROPIUM 0.5MG/ALBUTEROL 2.5MG INH SOL UD 3ML (DUONEB)(J7620) NEB SCH ×4 (01:15→20:00)
[2016-09-16 04:45] LABS: MEAN CORPUSCULAR HEMOGLOBIN 27.9 pg (27.0-33.0); MEAN CORPUSCULAR HGB CONC 31.1 g/dl (32.0-36.5); MEAN CORPUSCULAR VOLUME 89.7 fl (80.0-96.0); RED CELL DISTRIBUTION WIDTH 16.5 % (11.5-14.5); WHITE BLOOD COUNT 9.2 K/mm3 (4.0-10.0)
[2016-09-16 05:11] LABS: ALBUMIN 3.2 GM/DL (3.2-5.2); CALCIUM LEVEL 8.6 MG/DL (8.8-10.2); CREATININE FOR GFR 1.99 MG/DL (0.55-1.02); GLOMERULAR FILTRATION RATE 25.4 (>32); MAGNESIUM LEVEL 2.8 MG/DL (1.8-2.4); POTASSIUM SERUM 3.9 MEQ/L (3.5-5.1)
[2016-09-16] MEDS: HumaLOG INSULIN (NovoLOG) PER UNIT SC SCH ×4 (07:30→21:00)
[2016-09-16] MEDS: ADVAIR DISKUS 250/50 INH PWD INH SCH ×2 (07:57→20:27)
[2016-09-16] MEDS ORDERED: LIDOCAINE 5% OINT 30 GM TOP SCH (09:30)
[2016-09-16] MEDS: ASPIRIN 81 MG ENTERIC TAB PO SCH (09:40)
[2016-09-16] MEDS: SENOKOT S TAB PO SCH (09:40)
[2016-09-16] MEDS: FERROUS SULFATE 325MG TAB PO SCH (09:40)
[2016-09-16] MEDS: SPIRONOLACTONE 25 MG TAB PO SCH (09:40)
[2016-09-16] MEDS: amLODIPine 10 MG TAB PO SCH (09:40)
[2016-09-16] MEDS: CARVedilol 3.125 MG TAB PO SCH ×2 (09:41→21:03)
[2016-09-16] MEDS: GABAPENTIN 100 MG CAP PO SCH ×2 (09:41→21:03)
[2016-09-16] MEDS: LIDOCAINE 5% OINT 30 GM TOP SCH ×3 (09:41→21:07)
[2016-09-16] MEDS: predniSONE 10 MG TAB PO SCH (09:41)
[2016-09-16] MEDS: LEVEMIR (INSULIN DETEMIR) 1 UNITS/0.01ML SC SCH ×2 (09:42→21:00)
[2016-09-16] MEDS: cefTRIAXone SOD 1 GM in D5W MINI-BAG PLUS 50 ML IV SCH (12:00)
[2016-09-16] MEDS ORDERED: hydrALAZINE INJ 20 MG/ML VIAL As Ordered ONE (16:58)
[2016-09-16] MEDS: OMEPRAZOLE 20 MG CAP PO SCH (17:00)
[2016-09-16] MEDS: hydrALAZINE INJ 20 MG/ML VIAL IV PRN (17:01)
--- NOTE | 2016-09-16 17:11 | IPNPDOC ---
Date Seen The patient was seen on 09/16/16. Progress Note Hospitalist Progress Note Subjective: Patient states she is still short of breath, but notes that she is always short of breath. Objective: Physical Exam: Vitals: Vital Sign - Last 24 Hours 09/15/16 09/15/16 09/15/16 09/16/16 20:00 20:00 21:00 00:00 Temp 98.4 98.8 Pulse 93 89 Resp 22 21 B/P 175/78 169/72 Pulse Ox 97 95 O2 Delivery Nasal Cannula Nasal Cannula Nasal Cannula Nasal Cannula O2 Flow Rate 4.0 4.0 4.0 4.0 09/16/16 09/16/16 09/16/16 09/16/16 04:00 08:00 08:00 09:00 Temp 99.7 99.0 Pulse 86 89 Resp 19 18 B/P 178/84 183/110 176/77 Pulse Ox 97 96 O2 Delivery Nasal Cannula Nasal Cannula Nasal Cannula O2 Flow Rate 4.0 4.0 4.0 09/16/16 09/16/16 09/16/16 09/16/16 09:40 09:41 12:00 12:00 Temp 97.9 Pulse 87 88 83 Resp 16 B/P 187/117 187/117 196/89 Pulse Ox 93 O2 Delivery Nasal Cannula Nasal Cannula O2 Flow Rate 4.0 4.0 09/16/16 09/16/16 09/16/16 14:00 16:00 16:00 Temp 98.5 Pulse 89 Resp 20 B/P 190/88 210/99 Pulse Ox 96 O2 Delivery Nasal Cannula Nasal Cannula O2 Flow Rate 4.0 4.0 General: Awake, alert, no acute distress. HEENT: Normal Cephalic, atraumatic, extraocular movements intact CV: Regular rate and rhythm, no murmurs rubs or gallops Lungs: Clear To auscultation bilaterally with the exception of slight crackles in the bilateral bases Abd: Soft, diffuse tenderness to palpation, normal bowel sounds Extremities: 1+ edema at the bilateral lower extremities Neuro: Alert and oriented, normal speech Psych: normal mood and affect Labs and Imaging: Laboratory Tests 09/16/16 04:32 Anion Gap 5 L, Red Blood Count 4.04, Mean Corpuscular Volume 89.7, Mean Corpuscular Hemoglobin 27.9, Mean Corpuscular Hemoglobin Concent 31.1 L, Red Cell Distribution Width 16.5 H Assessment and Plan: 85-year-old female with 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 She has also been found to have a UTI. 1. Acute on chronic diastolic CHF exacerbation: The patient had a negative fluid balance yesterday of almost 600 mL. We'll continue to diurese her with IV Lasix, as well as home Aldactone, at this time. Echocardiogram in May of last year showed an EF of 75% as well as grade 1 diastolic dysfunction. 2. Elevated troponin: The patient's troponin peaked at 0.26 and is now trending down. The patient denied any chest pain, and her EKG did not show any concerning changes. I suspect that this is secondary to strain from her acute CHF exacerbation. 3. UTI: The patient's urine culture grew Morganella. I will start her on Rocephin. She is currently afebrile with a normal white count. Blood cultures pending. 4. Acute on chronic kidney disease stage 3-4: The patient's baseline creatinine appears to be in the upper ones. Her creatinine upon admission was 2.24, and has now slightly improved to 1.99. We will continue to diurese her, and follow her kidney function closely. 5. Diabetes mellitus type 2 complicated by peripheral neuropathy: Continue Levemir 10 units twice a day. This is a decrease from her home dose of 20 units in the morning, and 10 units in the evening. Also currently holding home short acting insulin that is usually administered at lunch time. We will continue sliding scale insulin while the patient is in-house. We also will continue the patient on her home Neurontin. 6. COPD: The patient currently does not have any wheezes. We'll continue her on her home Advair, as well as scheduled and when necessary DuoNeb's. Continue home daily prednisone. 7. Hypertension: The patient's blood pressure has been quite uncontrolled. We' ll continue her home daily Norvasc as well as home Coreg. We will also start her on hydralazine. 8. Coronary artery disease status post stents, hyperlipidemia: Continue home baby aspirin, as well as home beta hamlet. The patient does not report taking a statin, however, this is something that should be further discussed with her outpatient physicians as she may benefit from starting this. DVT prophylaxis: Teds and SCDs Dispo: pending diuresis and improvement in respiratory status VS, I&O, 24H, Fishbone Vital Signs/I&O Vital Signs Date Time Temp Pulse Resp B/P Pulse Ox O2 Delivery O2 Flow Rate FiO2 09/16/16 16:00 98.5 89 20 210/99 96 Nasal Cannula 4.0 I&O- Last 24 Hours up to 6 AM 09/16/16 06:00 Intake Total 1270 ml Output Total 2050 ml Balance -780 ml Laboratory Data 24H LABS Laboratory Tests 2 09/15/16 18:09: Bedside Glucose (Misc Panel) 167H 09/15/16 20:12: Bedside Glucose (Misc Panel) 383H 09/16/16 04:32: Albumin 3.2, Blood Urea Nitrogen 56H, Creatinine 1.99H, Sodium Level 142, Potassium Level 3.9, Chloride Level 96L, Carbon Dioxide Level 41H, Anion Gap 5L , Calcium Level 8.6L, Glomerular Filtration Rate 25.4L, Magnesium Level 2.8H, Phosphorus Level 4.0 09/16/16 08:08: Bedside Glucose (Misc Panel) 108 09/16/16 11:41: Bedside Glucose (Misc Panel) 302H 09/16/16 16:31: Bedside Glucose (Misc Panel) 169H CBC/BMP Laboratory Tests 09/16/16 04:32 Anion Gap 5 L, Red Blood Count 4.04, Mean Corpuscular Volume 89.7, Mean Corpuscular Hemoglobin 27.9, Mean Corpuscular Hemoglobin Concent 31.1 L, Red Cell Distribution Width 16.5 H Microbiology Microbiology 09/14/16 Blood Culture - Preliminary, Resulted No Growth after 48 hours. All Specime... 09/14/16 Urine Culture - Final, Complete Morganella Morganii Ssp [facility] Kwong Sep 16, 2016 17:11
[2016-09-16] MEDS: **hydrALAZINE** 10 MG TAB PO SCH ×2 (17:26→21:02)
[2016-09-16] MEDS: ACETAMINOPHEN TAB 650MG DOSE (2X325MG) PO PRN (18:21)
[2016-09-16] MEDS ORDERED: hydrALAZINE INJ 20 MG/ML VIAL IV ONE (22:30)
[2016-09-17] VITALS (8 sets, daily range): BP systolic 144–199; BP diastolic 74–90
[2016-09-17] MEDS: FUROSEMIDE 40 MG/4 ML VIAL (J1940) IV SCH ×3 (00:40→15:50)
[2016-09-17] MEDS: IPRATROPIUM 0.5MG/ALBUTEROL 2.5MG INH SOL UD 3ML (DUONEB)(J7620) NEB SCH ×5 (02:03→23:51)
[2016-09-17] MEDS: hydrALAZINE INJ 20 MG/ML VIAL IV PRN ×2 (04:34→08:59)
[2016-09-17 05:08] LABS: MEAN CORPUSCULAR HEMOGLOBIN 27.7 pg (27.0-33.0); MEAN CORPUSCULAR HGB CONC 30.8 g/dl (32.0-36.5); MEAN CORPUSCULAR VOLUME 89.9 fl (80.0-96.0); RED CELL DISTRIBUTION WIDTH 16.7 % (11.5-14.5); WHITE BLOOD COUNT 10.8 K/mm3 (4.0-10.0)
[2016-09-17 05:22] LABS: ALBUMIN 3.2 GM/DL (3.2-5.2); CALCIUM LEVEL 8.1 MG/DL (8.8-10.2); CREATININE FOR GFR 2.22 MG/DL (0.55-1.02); GLOMERULAR FILTRATION RATE 22.4 (>32); MAGNESIUM LEVEL 2.5 MG/DL (1.8-2.4); POTASSIUM SERUM 3.7 MEQ/L (3.5-5.1)
[2016-09-17] MEDS: SLF 3 ML SYR IV SCH ×3 (05:56→21:21)
[2016-09-17] MEDS: ISOSORBIDE DIN (ISORDIL) 10 MG TAB PO SCH ×3 (05:56→21:21)
[2016-09-17] MEDS: **hydrALAZINE HCL** 25 MG TAB PO SCH ×2 (05:56→13:25)
[2016-09-17] MEDS: ACETAMINOPHEN TAB 650MG DOSE (2X325MG) PO PRN (05:57)
[2016-09-17] MEDS: ADVAIR DISKUS 250/50 INH PWD INH SCH ×2 (07:43→19:33)
[2016-09-17] MEDS: HumaLOG INSULIN (NovoLOG) PER UNIT SC SCH ×4 (08:56→20:42)
[2016-09-17] MEDS: LEVEMIR (INSULIN DETEMIR) 1 UNITS/0.01ML SC SCH ×2 (08:57→21:19)
[2016-09-17] MEDS: ASPIRIN 81 MG ENTERIC TAB PO SCH (09:02)
[2016-09-17] MEDS: SENOKOT S TAB PO SCH (09:02)
[2016-09-17] MEDS: amLODIPine 10 MG TAB PO SCH (09:02)
[2016-09-17] MEDS: FERROUS SULFATE 325MG TAB PO SCH (09:03)
[2016-09-17] MEDS: CARVedilol 3.125 MG TAB PO SCH ×2 (09:03→21:21)
[2016-09-17] MEDS: SPIRONOLACTONE 25 MG TAB PO SCH (09:03)
[2016-09-17] MEDS: GABAPENTIN 100 MG CAP PO SCH ×2 (09:03→21:20)
[2016-09-17] MEDS: predniSONE 10 MG TAB PO SCH (09:03)
[2016-09-17] MEDS: LIDOCAINE 5% OINT 30 GM TOP SCH ×3 (09:04→21:19)
[2016-09-17] MEDS: cefTRIAXone SOD 1 GM in D5W MINI-BAG PLUS 50 ML IV SCH (13:23)
[2016-09-17] MEDS: OMEPRAZOLE 20 MG CAP PO SCH ×2 (17:30→21:20)
--- NOTE | 2016-09-17 18:00 | IPNPDOC ---
Date Seen The patient was seen on 09/17/16. Progress Note Hospitalist Progress Note Subjective: Patient is more sleepy today and says her breathing is not as good as it usually is Objective: Physical Exam: Vitals: Vital Sign - Last 24 Hours 09/16/16 09/16/16 09/16/16 09/16/16 19:30 20:00 21:00 21:02 Temp 99.5 Pulse 100 102 Resp 22 20 B/P 183/85 207/80 207/80 Pulse Ox 93 95 O2 Delivery Nasal Cannula Nasal Cannula Nasal Cannula O2 Flow Rate 4.0 4.0 4.0 09/16/16 09/16/16 09/16/16 09/16/16 21:30 22:10 22:33 23:00 Temp 98.3 Pulse 94 90 91 Resp 20 20 18 B/P 191/97 190/86 190/86 177/83 Pulse Ox 95 94 O2 Delivery Nasal Cannula Nasal Cannula Nasal Cannula O2 Flow Rate 4.0 4.0 4.0 09/17/16 09/17/16 09/17/16 09/17/16 00:00 02:00 04:30 04:34 Temp 98.0 Pulse 99 91 Resp 20 22 B/P 144/82 199/90 199/90 Pulse Ox 90 95 O2 Delivery Nasal Cannula Nasal Cannula Nasal Cannula O2 Flow Rate 4.0 5.0 4.0 09/17/16 09/17/16 09/17/16 09/17/16 05:00 05:56 06:30 08:00 Temp 99.2 Pulse 92 97 Resp 18 18 B/P 199/78 199/78 178/80 Pulse Ox 92 O2 Delivery Nasal Cannula Nasal Cannula Nasal Cannula O2 Flow Rate 4.0 5.0 5.0 09/17/16 09/17/16 09/17/16 09/17/16 08:00 08:59 09:02 09:03 Temp 98.6 Pulse 95 95 95 Resp 20 B/P 178/77 178/77 178/77 Pulse Ox 93 O2 Delivery Nasal Cannula O2 Flow Rate 5.0 17 09/17/16 09/17/16 09/17/16 12:00 12:00 13:24 13:25 Temp 98.7 Pulse 97 Resp 18 B/P 176/84 176/74 176/74 Pulse Ox 93 O2 Delivery Nasal Cannula Nasal Cannula O2 Flow Rate 5.0 5.0 09/17/16 09/17/16 16:00 16:00 Temp 98.9 Pulse 94 Resp 20 B/P 166/80 Pulse Ox 93 O2 Delivery Nasal Cannula Nasal Cannula O2 Flow Rate 5.0 5.0 General: drowsy but arousable HEENT: Normal Cephalic, atraumatic, extraocular movements intact CV: Regular rate and rhythm, no murmurs rubs or gallops Lungs: very tight with wheezes Abd: Soft, diffuse tenderness to palpation, normal bowel sounds Extremities: 1+ edema at the bilateral lower extremities Neuro: Alert and oriented, normal speech Psych: normal mood and affect Labs and Imaging: Laboratory Tests 09/17/16 04:49 Anion Gap 6 L, Red Blood Count 4.54, Mean Corpuscular Volume 89.9, Mean Corpuscular Hemoglobin 27.7, Mean Corpuscular Hemoglobin Concent 30.8 L, Red Cell Distribution Width 16.7 H Assessment and Plan: 85-year-old female with 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 She has also been found to have a UTI. 1. Acute on chronic diastolic CHF exacerbation: The patient had a negative fluid balance yesterday of almost 900 mL. She is also down 2.5 kgs. We'll continue to diurese her but will cut back on the lasix frequency; continue home Aldactone, at this time. Echocardiogram in May of last year showed an EF of 75% as well as grade 1 diastolic dysfunction. 2. Elevated troponin: The patient's troponin peaked at 0.26 and is now trending down. The patient denied any chest pain, and her EKG did not show any concerning changes. I suspect that this is secondary to strain from her acute CHF exacerbation. 3. UTI: The patient's urine culture grew Morganella. Continue Rocephin. She is currently afebrile with a normal white count. Blood cultures negative. 4. Acute on chronic kidney disease stage 3-4: The patient's baseline creatinine appears to be in the upper ones. Her creatinine upon admission was 2.24, had slightly improved to 1.99, but is now 2.22 again. We will continue to diurese her but more slowly, and follow her kidney function closely. 5. Diabetes mellitus type 2 complicated by peripheral neuropathy: Continue Levemir 10 units twice a day. This is a decrease from her home dose of 20 units in the morning, and 10 units in the evening. Also currently holding home short acting insulin that is usually administered at lunch time. We will continue sliding scale insulin while the patient is in-house. We also will continue the patient on her home Neurontin. 6. COPD: The patient has developed wheezes. We'll continue her on her home Advair, as well as scheduled and when necessary DuoNeb's. Change home daily prednisone to solumedrol. Check ABG. 7. Hypertension: The patient's blood pressure has been quite uncontrolled. We' ll continue her home daily Norvasc as well as home Coreg. Hydralazine and isordil were started yesterday. We will increase her hydralazine. 8. Coronary artery disease status post stents, hyperlipidemia: Continue home baby aspirin, as well as home beta hamlet. The patient does not report taking a statin, however, this is something that should be further discussed with her outpatient physicians as she may benefit from starting this. DVT prophylaxis: Teds and SCDs Dispo: pending diuresis and improvement in respiratory status VS, I&O, 24H, [place] Vital Signs/I&O Vital Signs Date Time Temp Pulse Resp B/P Pulse Ox O2 Delivery O2 Flow Rate FiO2 09/17/16 16:00 98.9 94 20 166/80 93 Nasal Cannula 5.0 I&O- Last 24 Hours up to 6 AM 09/17/16 06:00 Intake Total 1190 ml Output Total 1600 ml Balance -410 ml Laboratory Data 24H LABS Laboratory Tests 2 09/16/16 20:55: Bedside Glucose (Misc Panel) 231H 09/17/16 04:49: Albumin 3.2, Blood Urea Nitrogen 55H, Creatinine 2.22H, Sodium Level 137, Potassium Level 3.7, Chloride Level 95L, Carbon Dioxide Level 36H, Anion Gap 6L , Calcium Level 8.1L, Glomerular Filtration Rate 22.4L, Magnesium Level 2.5H, Phosphorus Level 3.0# 09/17/16 07:20: Bedside Glucose (Misc Panel) 143H 09/17/16 13:01: Bedside Glucose (Misc Panel) 273H 09/17/16 17:24: Bedside Glucose (Misc Panel) 205H CBC/BMP Laboratory Tests 09/17/16 04:49 Anion Gap 6 L, Red Blood Count 4.54, Mean Corpuscular Volume 89.9, Mean Corpuscular Hemoglobin 27.7, Mean Corpuscular Hemoglobin Concent 30.8 L, Red Cell Distribution Width 16.7 H Microbiology Microbiology 09/14/16 Blood Culture - Preliminary, Resulted No Growth after 72 hours. All specime... 09/14/16 Urine Culture - Final, Complete Morganella Morganii Ssp [facility] Kwong Sep 17, 2016 18:00
[2016-09-17 18:24] LABS: ABG BASE EXCESS 6.7 (-2.0-2.0); ABG HCO3 33.7 MEQ/L (22.0-26.0); ABG PARTIAL PRESSURE CO2 59.9 mmHg (35.0-45.0); ABG PARTIAL PRESSURE O2 65.7 mmHg (75.0-100.0); ABG STANDARD HCO3 30.4 MEQ/L (22.0-26.0); ABG TOTAL CO2 35.5 MEQ/L (23.0-31.0); ABG pH (ARTERIAL) 7.368 UNITS (7.350-7.450)
[2016-09-17] MEDS: methylPREDNISolone INJ 125 MG/2 ML VIAL (J2930) IV SCH (18:25)
[2016-09-17] MEDS: **hydrALAZINE** 50 MG TAB PO SCH (21:21)
[2016-09-18] VITALS (7 sets, daily range): BP systolic 150–179; BP diastolic 74–85; O2SAT 94
[2016-09-18] MEDS: methylPREDNISolone INJ 125 MG/2 ML VIAL (J2930) IV SCH ×3 (02:21→17:59)
[2016-09-18 05:18] LABS: MEAN CORPUSCULAR HEMOGLOBIN 28.1 pg (27.0-33.0); MEAN CORPUSCULAR HGB CONC 31.6 g/dl (32.0-36.5); MEAN CORPUSCULAR VOLUME 89.1 fl (80.0-96.0); RED CELL DISTRIBUTION WIDTH 16.8 % (11.5-14.5); WHITE BLOOD COUNT 5.8 K/mm3 (4.0-10.0)
[2016-09-18 05:31] LABS: ALBUMIN 3.1 GM/DL (3.2-5.2); CALCIUM LEVEL 8.7 MG/DL (8.8-10.2); CREATININE FOR GFR 2.18 MG/DL (0.55-1.02); GLOMERULAR FILTRATION RATE 22.9 (>32); MAGNESIUM LEVEL 2.8 MG/DL (1.8-2.4); PHOSPHORUS LEVEL 4.1 MG/DL (2.5-4.9); POTASSIUM SERUM 4.3 MEQ/L (3.5-5.1)
[2016-09-18] MEDS: SLF 3 ML SYR IV SCH ×3 (05:32→21:30)
[2016-09-18] MEDS: ISOSORBIDE DIN (ISORDIL) 10 MG TAB PO SCH ×3 (05:37→21:27)
[2016-09-18] MEDS: **hydrALAZINE** 50 MG TAB PO SCH ×3 (05:37→21:27)
[2016-09-18] MEDS: GABAPENTIN 100 MG CAP PO SCH ×2 (07:33→21:26)
[2016-09-18] MEDS: HumaLOG INSULIN (NovoLOG) PER UNIT SC SCH ×4 (07:33→21:26)
[2016-09-18] MEDS: CARVedilol 3.125 MG TAB PO SCH ×2 (07:37→21:26)
[2016-09-18] MEDS: SPIRONOLACTONE 25 MG TAB PO SCH (07:37)
[2016-09-18] MEDS: ASPIRIN 81 MG ENTERIC TAB PO SCH (07:37)
[2016-09-18] MEDS: amLODIPine 10 MG TAB PO SCH (07:37)
[2016-09-18] MEDS: FERROUS SULFATE 325MG TAB PO SCH (07:38)
[2016-09-18] MEDS: SENOKOT S TAB PO SCH (07:38)
[2016-09-18] MEDS: LIDOCAINE 5% OINT 30 GM TOP SCH ×3 (07:39→21:27)
[2016-09-18] MEDS: ADVAIR DISKUS 250/50 INH PWD INH SCH ×2 (07:47→21:51)
[2016-09-18] MEDS: IPRATROPIUM 0.5MG/ALBUTEROL 2.5MG INH SOL UD 3ML (DUONEB)(J7620) NEB SCH ×3 (07:48→20:00)
[2016-09-18] MEDS ORDERED: FUROSEMIDE 40 MG/4 ML VIAL (J1940) IV SCH (09:00)
[2016-09-18] MEDS: LEVEMIR (INSULIN DETEMIR) 1 UNITS/0.01ML SC SCH ×2 (09:00→21:26)
[2016-09-18] MEDS: cefTRIAXone SOD 1 GM in D5W MINI-BAG PLUS 50 ML IV SCH (11:58)
--- NOTE | 2016-09-18 14:33 | REP ---
CT ABDOMEN AND PELVIS WITHOUT IV OR ORAL CONTRAST: HISTORY: Diffuse abdominal tenderness to palpation. Comparison CT study is from September 14, 2016. 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 There is a moderate to marked S-shaped thoracolumbar rotoscoliotic curve again noted. Axial lung window setting images demonstrate linear plate-like atelectasis in the lung bases bilaterally. This is essentially unchanged. There is a moderate size hiatal hernia again seen. An accessory splenule is noted with some granulomatous calcifications in the spleen. There is a thin layer of opaque material in the dependent portion of gallbladder consistent with gallstones. This is unchanged. No focal hepatic lesion is seen. No adrenal lesion is observed. Pancreas is unremarkable and unchanged. There is profound atrophy of the right kidney and mild atrophy of the left kidney no hydronephrosis. Extensive vascular calcifications noted. There is pancolonic diverticulosis without CT evidence of diverticulitis. A Farias catheter seen in the urinary bladder. This is empty. There is a right adnexal cystic lesion again noted unchanged measuring 4.6 x 4.6 x 5.0 cm. There is a fairly prominent levoconvex scoliosis in the lumbar spine. Small bowel loops are unremarkable. No abdominal wall defect is seen. There is evidence of mild diffuse edema in the subcutaneous fat layers particularly posteriorly and outside the abdomen. IMPRESSION: No evidence of acute intra-abdominal abnormality. Cholelithiasis, pancolonic diverticulosis, 5 cm right adnexal cystic mass again seen. Scoliosis again seen. Signed by Bird Stewart MD 09/18/2016 05:04 P
--- NOTE | 2016-09-18 14:45 | REP ---
PA and lateral chest: Comparisons are the portable chest of 09/14/2078, PA and lateral chest of 02/26/2016. There is chronic cardiomegaly and chronic interstitial coarsening. There is no change from the prior studies. Signed by Bradley Marquis MD 09/18/2016 02:36 P
--- NOTE | 2016-09-18 16:31 | IPNPDOC ---
Date Seen The patient was seen on 09/18/16. Progress Note Hospitalist Progress Note Subjective: Patient is awake and sitting in a chair today but she says her breathing is still not good Objective: Physical Exam: Vitals: Vital Sign - Last 24 Hours 09/17/16 09/17/16 09/17/16 09/18/16 20:00 20:00 21:21 00:00 Temp 99.7 98.6 Pulse 90 100 88 Resp 22 B/P 169/74 185/87 179/85 Pulse Ox 91 95 O2 Delivery Nasal Cannula Nasal Cannula Nasal Cannula O2 Flow Rate 5.0 5.0 4.0 09/18/16 09/18/16 09/18/16 09/18/16 04:00 05:37 07:37 08:00 Temp 98.2 99.0 Pulse 90 102 102 Resp 18 B/P 173/74 179/77 178/80 178/80 Pulse Ox 94 91 O2 Delivery Nasal Cannula O2 Flow Rate 3.0 09/18/16 09/18/16 09/18/16 08:00 11:49 14:54 Temp 98.8 Pulse 100 Resp 18 B/P 150/76 175/73 Pulse Ox 92 O2 Delivery Nasal Cannula Nasal Cannula O2 Flow Rate 3.0 3.0 General: awake, alert, no acute distress HEENT: Normocephalic, atraumatic, extraocular movements intact CV: Regular rate and rhythm, no murmurs rubs or gallops Lungs: very tight with wheezes but moving more air than yesterday Abd: Soft, diffuse tenderness to palpation, normal bowel sounds Extremities: 1+ edema at the bilateral lower extremities Neuro: Alert and oriented, normal speech Psych: normal mood and affect Labs and Imaging: Laboratory Tests 09/18/16 05:04 Anion Gap 5 L, Red Blood Count 4.05, Mean Corpuscular Volume 89.1, Mean Corpuscular Hemoglobin 28.1, Mean Corpuscular Hemoglobin Concent 31.6 L, Red Cell Distribution Width 16.8 H Assessment and Plan: 85-year-old female with 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 She has also been found to have a UTI. 1. Acute on chronic diastolic CHF exacerbation: The patient had a negative fluid balance yesterday of almost 130mL. She is also down 2.5 kgs. We are still diuresing her but not as frequently given her tenuous kidney function; continue home Aldactone, at this time. Echocardiogram in May of last year showed an EF of 75% as well as grade 1 diastolic dysfunction. 2. Elevated troponin: The patient's troponin peaked at 0.26 and is now trending down. The patient denied any chest pain, and her EKG did not show any concerning changes. I suspect that this is secondary to strain from her acute CHF exacerbation. 3. UTI: The patient's urine culture grew Morganella. Continue Rocephin. She is currently afebrile with a normal white count. Blood cultures negative. 4. Acute on chronic kidney disease stage 3-4: The patient's baseline creatinine appears to be in the upper ones. Her creatinine upon admission was 2.24, had slightly improved to 1.99, but is now 2.18 again. We will continue to diurese her but more slowly than originally, and follow her kidney function closely. 5. Diabetes mellitus type 2 complicated by peripheral neuropathy: Continue Levemir 10 units twice a day. This is a decrease from her home dose of 20 units in the morning, and 10 units in the evening. Also currently holding home short acting insulin that is usually administered at lunch time. We will continue sliding scale insulin while the patient is in-house. We also will continue the patient on her home Neurontin. 6. COPD: The patient has developed wheezes. We'll continue her on her home Advair, as well as scheduled and when necessary DuoNeb's. Continue solumedrol started yesterday. Recheck CXR. 7. Hypertension: The patient's blood pressure has been quite uncontrolled. We' ll continue her home daily Norvasc as well as home Coreg. Hydralazine and isordil were started here. 8. Coronary artery disease status post stents, hyperlipidemia: Continue home baby aspirin, as well as home beta hamlet. The patient does not report taking a statin, however, this is something that should be further discussed with her outpatient physicians as she may benefit from starting this. 9. Abd TTP: has been present for several days now but no vomiting; will check CT abd/pel DVT prophylaxis: Teds and SCDs Dispo: pending improvement in respiratory status VS, I&O, 24H, Fishbone Vital Signs/I&O Vital Signs Date Time Temp Pulse Resp B/P Pulse Ox O2 Delivery O2 Flow Rate FiO2 09/18/16 14:54 175/73 09/18/16 11:49 98.8 100 18 92 Nasal Cannula 3.0 I&O- Last 24 Hours up to 6 AM 09/18/16 05:59 Intake Total 960 ml Output Total 1110 ml Balance -150 ml Laboratory Data 24H LABS Laboratory Tests 2 09/17/16 17:24: Bedside Glucose (Misc Panel) 205H 09/17/16 18:11: Arterial Blood pH 7.368, Arterial Blood Partial Pressure CO2 59.9H, Arterial Blood Partial Pressure O2 65.7L, Arterial Blood Total CO2 35.5H, Arterial Blood HCO3 33.7H, Arterial Blood Base Excess 6.7H, Arterial Blood Oxygen Saturation 92.4L, Blood Gas Bicarbonate Standard 30.4H 09/17/16 20:27: Bedside Glucose (Misc Panel) 231H 09/18/16 05:04: Albumin 3.1L, Blood Urea Nitrogen 63H, Creatinine 2.18H, Sodium Level 134L, Potassium Level 4.3, Chloride Level 92L, Carbon Dioxide Level 37H, Anion Gap 5L , Calcium Level 8.7L, Glomerular Filtration Rate 22.9L, Magnesium Level 2.8H, Phosphorus Level 4.1# 09/18/16 11:29: Bedside Glucose (Misc Panel) 352H CBC/BMP Laboratory Tests 09/18/16 05:04 Anion Gap 5 L, Red Blood Count 4.05, Mean Corpuscular Volume 89.1, Mean Corpuscular Hemoglobin 28.1, Mean Corpuscular Hemoglobin Concent 31.6 L, Red Cell Distribution Width 16.8 H Microbiology Microbiology 09/14/16 Blood Culture - Preliminary, Resulted No Growth after 72 hours. All specime... 09/14/16 Urine Culture - Final, Complete Morganella Morganii Ssp [facility] Kwong Sep 18, 2016 16:31
[2016-09-18] MEDS: OMEPRAZOLE 20 MG CAP PO SCH (17:59)
[2016-09-19] VITALS (7 sets, daily range): BP systolic 153–186; BP diastolic 68–81
[2016-09-19] MEDS: methylPREDNISolone INJ 125 MG/2 ML VIAL (J2930) IV SCH ×3 (01:17→17:21)
[2016-09-19] MEDS: IPRATROPIUM 0.5MG/ALBUTEROL 2.5MG INH SOL UD 3ML (DUONEB)(J7620) NEB SCH ×3 (03:31→20:00)
[2016-09-19 05:07] LABS: MEAN CORPUSCULAR HEMOGLOBIN 27.7 pg (27.0-33.0); MEAN CORPUSCULAR HGB CONC 31.1 g/dl (32.0-36.5); MEAN CORPUSCULAR VOLUME 89.2 fl (80.0-96.0); RED CELL DISTRIBUTION WIDTH 16.7 % (11.5-14.5); WHITE BLOOD COUNT 7.1 K/mm3 (4.0-10.0)
[2016-09-19] MEDS: SLF 3 ML SYR IV SCH ×3 (05:13→23:13)
[2016-09-19] MEDS: **hydrALAZINE** 50 MG TAB PO SCH ×3 (05:14→23:14)
[2016-09-19] MEDS: ISOSORBIDE DIN (ISORDIL) 10 MG TAB PO SCH ×3 (05:14→23:14)
[2016-09-19 05:26] LABS: ALBUMIN 3.3 GM/DL (3.2-5.2); CALCIUM LEVEL 8.5 MG/DL (8.8-10.2); CREATININE FOR GFR 2.53 MG/DL (0.55-1.02); GLOMERULAR FILTRATION RATE 19.3 (>32); MAGNESIUM LEVEL 2.9 MG/DL (1.8-2.4)
[2016-09-19 05:50] LABS: POTASSIUM SERUM 6.3 MEQ/L (3.5-5.1)
[2016-09-19 06:36] LABS: CREATININE FOR GFR 2.48 MG/DL (0.55-1.02); GLOMERULAR FILTRATION RATE 19.7 (>32); POTASSIUM SERUM 4.3 MEQ/L (3.5-5.1)
[2016-09-19] MEDS: ADVAIR DISKUS 250/50 INH PWD INH SCH ×2 (08:02→20:47)
[2016-09-19] MEDS: ASPIRIN 81 MG ENTERIC TAB PO SCH (08:12)
[2016-09-19] MEDS: HumaLOG INSULIN (NovoLOG) PER UNIT SC SCH ×4 (08:12→21:33)
[2016-09-19] MEDS: FERROUS SULFATE 325MG TAB PO SCH (08:12)
[2016-09-19] MEDS: SENOKOT S TAB PO SCH (08:12)
[2016-09-19] MEDS: GABAPENTIN 100 MG CAP PO SCH ×2 (08:12→20:18)
[2016-09-19] MEDS: amLODIPine 10 MG TAB PO SCH (08:13)
[2016-09-19] MEDS: CARVedilol 6.25 MG TAB PO SCH ×2 (08:13→20:18)
[2016-09-19] MEDS: LEVEMIR (INSULIN DETEMIR) 1 UNITS/0.01ML SC SCH ×2 (08:14→20:18)
[2016-09-19] MEDS: LIDOCAINE 5% OINT 30 GM TOP SCH ×3 (08:14→20:18)
--- NOTE | 2016-09-19 15:49 | IPNPDOC ---
Date Seen The patient was seen on 09/19/16. Progress Note Hospitalist Progress Note Subjective: Patient is awake and sitting in a chair today; other than feeling like her breathing is not her usual, she does not have any complaints Objective: Physical Exam: Vitals: Vital Sign - Last 24 Hours 09/18/16 09/18/16 09/18/16 09/18/16 16:00 20:00 20:00 21:26 Temp 99.0 99.4 Pulse 96 100 95 Resp 20 24 B/P 173/75 177/83 172/84 Pulse Ox 92 92 O2 Delivery Nasal Cannula Nasal Cannula Nasal Cannula O2 Flow Rate 3.0 3.0 3.0 09/18/16 09/19/16 09/19/16 09/19/16 21:51 00:00 03:40 04:00 Temp 98.9 97.6 Pulse 92 95 Resp 24 22 B/P 158/72 179/81 Pulse Ox 94 93 93 93 O2 Delivery Nasal Cannula Nasal Cannula NIPPV (BIPAP/CPAP) Nasal Cannula O2 Flow Rate 3.0 3.0 3.0 3.0 09/19/16 09/19/16 09/19/16 09/19/16 05:14 08:00 08:00 08:13 Temp 98.8 Pulse 104 91 Resp 20 B/P 175/79 186/81 181/81 Pulse Ox 92 O2 Delivery Nasal Cannula Nasal Cannula O2 Flow Rate 3.0 3.0 09/19/16 09/19/16 09/19/16 09/19/16 14:29 14:34 14:42 14:42 Temp 97.8 Pulse 94 Resp 20 B/P 153/68 153/68 153/68 Pulse Ox 90 O2 Delivery Nasal Cannula Nasal Cannula O2 Flow Rate 3.0 3.0 General: awake, alert, no acute distress HEENT: Normocephalic, atraumatic, extraocular movements intact CV: Regular rate and rhythm Lungs: moving much better air, slight diffuse expiratory wheeze Abd: Soft, diffuse tenderness to palpation, normal bowel sounds Extremities: 1+ edema at the bilateral lower extremities Neuro: Alert and oriented, normal speech Psych: normal mood and affect Labs and Imaging: Laboratory Tests 09/19/16 04:57 Anion Gap 7 L, Red Blood Count 4.25, Mean Corpuscular Volume 89.2, Mean Corpuscular Hemoglobin 27.7, Mean Corpuscular Hemoglobin Concent 31.1 L, Red Cell Distribution Width 16.7 H (HEMOLYZED) 09/19/16 06:06 Calcium Level 9.0 Assessment and Plan: 85-year-old female with 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 She has also been found to have a UTI. 1. Acute on chronic diastolic CHF exacerbation: The patient is overall down in weight about 2.5 kgs, but she did have a bit of a positive fluid balance yesterday. Given her kidney function, we will start lasix and aldactone at this time. Echocardiogram in May of last year showed an EF of 75% as well as grade 1 diastolic dysfunction. 2. Elevated troponin: The patient's troponin peaked at 0.26 and is now trending down. The patient denied any chest pain, and her EKG did not show any concerning changes. I suspect that this is secondary to strain from her acute CHF exacerbation. 3. UTI: The patient's urine culture grew Morganella. Now s/p 3 doses of Rocephin. She is currently afebrile with a normal white count. Blood cultures negative. 4. Acute on chronic kidney disease stage 3-4: The patient's baseline creatinine appears to be in the upper ones. Her creatinine upon admission was 2.24, had slightly improved to 1.99, but is now 2.48. We will stop all diuretics, and follow her kidney function closely. 5. Diabetes mellitus type 2 complicated by peripheral neuropathy: Continue Levemir 10 units twice a day. This is a decrease from her home dose of 20 units in the morning, and 10 units in the evening. Also currently holding home short acting insulin that is usually administered at lunch time. We will continue sliding scale insulin while the patient is in-house. We also will continue the patient on her home Neurontin. 6. COPD: Appears to be having a bit of an exacerbation. We'll continue her on her home Advair, as well as scheduled and when necessary DuoNeb's. Continue solumedrol. O2 requirement today is down to 3L from 4L. 7. Hypertension: The patient's blood pressure has been quite uncontrolled. We' ll continue her home daily Norvasc as well as home Coreg. Hydralazine and isordil were started here. We will increase her coreg today. 8. Coronary artery disease status post stents, hyperlipidemia: Continue home baby aspirin, as well as home beta hamlet. The patient does not report taking a statin, however, this is something that should be further discussed with her outpatient physicians as she may benefit from starting this. 9. Abd TTP: has been present for several days now but no vomiting; CT of the abd/pel is unremarkable. DVT prophylaxis: Teds and SCDs Dispo: pending improvement in respiratory status and kidney function I spoke to daughter Mariama Prabhakar on the phone today ([phone]) and gave her an update on her mom's status. VS, I&O, 24H, Fishbone Vital Signs/I&O Vital Signs Date Time Temp Pulse Resp B/P Pulse Ox O2 Delivery O2 Flow Rate FiO2 09/19/16 14:42 153/68 09/19/16 14:34 97.8 94 20 90 Nasal Cannula 3.0 I&O- Last 24 Hours up to 6 AM 09/19/16 06:00 Intake Total 2120 ml Output Total 1320 ml Balance 800 ml Laboratory Data 24H LABS Laboratory Tests 2 09/18/16 17:32: Bedside Glucose (Misc Panel) 286H 09/18/16 21:19: Bedside Glucose (Misc Panel) 345H 09/19/16 04:57: Albumin 3.3, Blood Urea Nitrogen 76H, Creatinine 2.53H, Sodium Level 129L, Potassium Level 6.3*H, Chloride Level 92L, Carbon Dioxide Level 30, Anion Gap 7L , Calcium Level 8.5L, Glomerular Filtration Rate 19.3L, Magnesium Level 2.9H, Phosphorus Level 4.0 09/19/16 06:06: Blood Urea Nitrogen 77H, Creatinine 2.48H, Sodium Level 133L, Potassium Level 4.3#, Chloride Level 91L, Carbon Dioxide Level 33H, Anion Gap 9, Calcium Level 9.0, Glomerular Filtration Rate 19.7L 09/19/16 11:52: Bedside Glucose (Misc Panel) 295H CBC/BMP Laboratory Tests 09/19/16 04:57 Anion Gap 7 L, Red Blood Count 4.25, Mean Corpuscular Volume 89.2, Mean Corpuscular Hemoglobin 27.7, Mean Corpuscular Hemoglobin Concent 31.1 L, Red Cell Distribution Width 16.7 H 09/19/16 06:06 Calcium Level 9.0 Microbiology Microbiology 09/14/16 Blood Culture - Final, Complete NO GROWTH AFTER 5 DAYS 09/14/16 Urine Culture - Final, Complete Morganella Morganii Ssp BOLA Kwong Sep 19, 2016 15:49
[2016-09-19] MEDS: OMEPRAZOLE 20 MG CAP PO SCH (17:21)
[2016-09-19] MEDS: ACETAMINOPHEN TAB 650MG DOSE (2X325MG) PO PRN (19:48)
[2016-09-19] MEDS ORDERED: SLF 3 ML SYR IV PRN (20:15)
[2016-09-19] MEDS ORDERED: SLF 3 ML SYR IV SCH (22:00)
[2016-09-20] MEDS: IPRATROPIUM 0.5MG/ALBUTEROL 2.5MG INH SOL UD 3ML (DUONEB)(J7620) NEB SCH ×4 (01:58→20:16)
[2016-09-20] MEDS: methylPREDNISolone INJ 125 MG/2 ML VIAL (J2930) IV SCH ×3 (02:41→17:20)
[2016-09-20] MEDS: SLF 3 ML SYR IV SCH ×3 (02:42→21:04)
[2016-09-20 04:45] VITALS: BP 178/84
[2016-09-20] MEDS: **hydrALAZINE** 50 MG TAB PO SCH ×3 (05:21→21:03)
[2016-09-20] MEDS: ISOSORBIDE DIN (ISORDIL) 10 MG TAB PO SCH ×3 (05:22→21:07)
[2016-09-20 05:49] LABS: MEAN CORPUSCULAR HEMOGLOBIN 27.6 pg (27.0-33.0); MEAN CORPUSCULAR VOLUME 89.1 fl (80.0-96.0); RED CELL DISTRIBUTION WIDTH 16.4 % (11.5-14.5); WHITE BLOOD COUNT 5.7 K/mm3 (4.0-10.0)
[2016-09-20 05:50] LABS: ALBUMIN 3.2 GM/DL (3.2-5.2); CREATININE FOR GFR 2.56 MG/DL (0.55-1.02); MAGNESIUM LEVEL 3.3 MG/DL (1.8-2.4); PHOSPHORUS LEVEL 5.4 MG/DL (2.5-4.9); POTASSIUM SERUM 4.1 MEQ/L (3.5-5.1)
[2016-09-20 08:00] VITALS: BP 148/67
[2016-09-20] MEDS: ADVAIR DISKUS 250/50 INH PWD INH SCH ×2 (08:17→19:48)
[2016-09-20] MEDS: GABAPENTIN 100 MG CAP PO SCH ×2 (08:47→21:03)
[2016-09-20] MEDS: SENOKOT S TAB PO SCH (08:48)
[2016-09-20] MEDS: ACETAMINOPHEN TAB 650MG DOSE (2X325MG) PO PRN ×3 (08:48→21:03)
[2016-09-20] MEDS: ASPIRIN 81 MG ENTERIC TAB PO SCH (08:49)
[2016-09-20] MEDS: amLODIPine 10 MG TAB PO SCH (08:49)
[2016-09-20] MEDS: CARVedilol 12.5 MG TAB PO SCH ×2 (08:49→21:03)
[2016-09-20] MEDS: FERROUS SULFATE 325MG TAB PO SCH (08:49)
[2016-09-20] MEDS: LEVEMIR (INSULIN DETEMIR) 1 UNITS/0.01ML SC SCH ×2 (08:50→20:41)
[2016-09-20] MEDS: HumaLOG INSULIN (NovoLOG) PER UNIT SC SCH ×4 (08:50→20:37)
[2016-09-20] MEDS: LIDOCAINE 5% OINT 30 GM TOP SCH ×3 (08:51→21:00)
[2016-09-20 11:35] VITALS: BP 136/58
--- NOTE | 2016-09-20 14:03 | IPNPDOC ---
Date Seen The patient was seen on 09/20/16. Progress Note Hospitalist Progress Note Subjective: Patient complains of left sided back pain today Objective: Physical Exam: Vitals: Vital Sign - Last 24 Hours 09/19/16 09/19/16 09/19/16 09/19/16 14:29 14:34 14:42 14:42 Temp 97.8 Pulse 94 Resp 20 B/P 153/68 153/68 153/68 Pulse Ox 90 O2 Delivery Nasal Cannula Nasal Cannula O2 Flow Rate 3.0 3.0 09/19/16 09/19/16 09/19/16 09/19/16 16:00 19:38 20:00 20:18 Temp 98.8 98.6 Pulse 100 91 91 Resp 24 22 B/P 170/74 173/80 173/80 Pulse Ox 86 93 O2 Delivery Nasal Cannula Nasal Cannula Nasal Cannula O2 Flow Rate 3.0 3.0 4.0 09/19/16 09/19/16 09/20/16 09/20/16 23:14 23:59 04:45 05:21 Temp 99.1 98.0 Pulse 93 82 Resp 20 20 B/P 170/78 170/78 178/84 178/84 Pulse Ox 98 96 O2 Delivery Nasal Cannula NIPPV (BIPAP/CPAP) O2 Flow Rate 4.0 09/20/16 09/20/16 09/20/16 09/20/16 08:00 08:03 08:48 08:49 Temp 98.1 Pulse 90 90 Resp 20 B/P 148/67 148/67 Pulse Ox 85 88 O2 Delivery NIPPV (BIPAP/CPAP) Nasal Cannula Nasal Cannula O2 Flow Rate 4.0 4.0 4.0 09/20/16 09/20/16 09/20/16 08:49 11:35 11:50 Temp 98.3 Pulse 90 81 Resp 20 B/P 148/67 136/58 Pulse Ox 92 O2 Delivery Nasal Cannula Nasal Cannula O2 Flow Rate 4.0 General: awake, alert, no acute distress HEENT: Normocephalic, atraumatic, extraocular movements intact CV: Regular rate and rhythm Lungs: still with diffuse wheeze and very little air movement Abd: Soft, diffuse tenderness to palpation, normal bowel sounds Extremities: 1+ edema at the bilateral lower extremities Neuro: Alert and oriented, normal speech Psych: normal mood and affect Labs and Imaging: Laboratory Tests 09/20/16 05:06 Anion Gap 9, Red Blood Count 3.78 L, Mean Corpuscular Volume 89.1, Mean Corpuscular Hemoglobin 27.6, Mean Corpuscular Hemoglobin Concent 31.0 L, Red Cell Distribution Width 16.4 H Assessment and Plan: 85-year-old female with 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 She has also been found to have a UTI. 1. Acute on chronic diastolic CHF exacerbation: The patient is overall down in weight about 2.5 kgs. Given her kidney function, we have stopped lasix and aldactone at this time. Echocardiogram in May of last year showed an EF of 75% as well as grade 1 diastolic dysfunction. 2. Elevated troponin: The patient's troponin peaked at 0.26 and is now trending down. The patient denied any chest pain, and her EKG did not show any concerning changes. I suspect that this is secondary to strain from her acute CHF exacerbation. 3. UTI: The patient's urine culture grew Morganella. Now s/p 3 doses of Rocephin. She is currently afebrile with a normal white count. Blood cultures negative. 4. Acute on chronic kidney disease stage 3-4: The patient's baseline creatinine appears to be in the upper ones. Her creatinine upon admission was 2.24, had slightly improved to 1.99, but is now 2.5. We have stopped all diuretics, and follow her kidney function closely. If no improvement tomorrow, may have to consult nephrology. 5. Diabetes mellitus type 2 complicated by peripheral neuropathy: Continue Levemir 10 units twice a day. This is a decrease from her home dose of 20 units in the morning, and 10 units in the evening. Also currently holding home short acting insulin that is usually administered at lunch time. We will continue sliding scale insulin while the patient is in-house. We also will continue the patient on her home Neurontin. 6. COPD: Appears to be having an exacerbation. We'll continue her on her home Advair, as well as scheduled and when necessary DuoNeb's. Continue solumedrol. O2 requirement fluctuates from 3L from 4L. She uses 2 liters at home. Despite several days of steroids, her lungs are very tight and she is clinically breathing hard. Will check CT chest. 7. Hypertension: The patient's blood pressure has been quite uncontrolled. We' ll continue her home daily Norvasc as well as home Coreg. Hydralazine and isordil were started here. I increased her home coreg again this morning, and I am already seeing an improvement. 8. Coronary artery disease status post stents, hyperlipidemia: Continue home baby aspirin, as well as home beta hamlet. The patient does not report taking a statin, however, this is something that should be further discussed with her outpatient physicians as she may benefit from starting this. 9. Abd TTP: has been present for several days now but no vomiting; CT of the abd/pel is unremarkable. DVT prophylaxis: Teds and SCDs Dispo: pending improvement in respiratory status and kidney function VS, I&O, 24H, Fishbone Vital Signs/I&O Vital Signs Date Time Temp Pulse Resp B/P Pulse Ox O2 Delivery O2 Flow Rate FiO2 09/20/16 11:50 Nasal Cannula 4.0 09/20/16 11:35 98.3 81 20 136/58 92 I&O- Last 24 Hours up to 6 AM 09/20/16 06:00 Intake Total 480 ml Output Total 575 ml Balance -95 ml Laboratory Data 24H LABS Laboratory Tests 2 09/19/16 16:09: Bedside Glucose (Misc Panel) 267H 09/19/16 20:17: Bedside Glucose (Misc Panel) 170H 09/20/16 05:06: Albumin 3.2, Blood Urea Nitrogen 91H, Creatinine 2.56H, Sodium Level 136, Potassium Level 4.1, Chloride Level 93L, Carbon Dioxide Level 34H, Anion Gap 9, Calcium Level 9.0, Glomerular Filtration Rate 19.0L, Magnesium Level 3.3H, Phosphorus Level 5.4#H 09/20/16 11:33: Bedside Glucose (Misc Panel) 310H CBC/BMP Laboratory Tests 09/20/16 05:06 Anion Gap 9, Red Blood Count 3.78 L, Mean Corpuscular Volume 89.1, Mean Corpuscular Hemoglobin 27.6, Mean Corpuscular Hemoglobin Concent 31.0 L, Red Cell Distribution Width 16.4 H Microbiology Microbiology 09/14/16 Blood Culture - Final, Complete NO GROWTH AFTER 5 DAYS 09/14/16 Urine Culture - Final, Complete Morganella Morganii Ssp [facility] Kwong Sep 20, 2016 14:03
--- NOTE | 2016-09-20 15:46 | REP ---
CT of the chest without IV contrast: Comparisons 09/14/2016. There are bilateral diffuse interstitial infiltrates have significantly worsened. There are now patchy confluent subsegmental alveolar infiltrates in all lobes of both lungs, not present previously, also indicating interval worsening. There are no pleural effusions. Cardiomegaly is again noted. There is calcified vascular atheroma in the coronary arteries as previously. There are no pleural effusions. There is no mediastinal or axillary adenopathy. The absence of IV contrast the study is insensitive for hilar adenopathy. Thoracic aorta is unremarkable. Within the upper abdomen. The right kidney is markedly atrophic. This is unchanged. Visualized portion of the left kidney is unremarkable. The visualized hepatic parenchyma, gallbladder, pancreas and spleen are unremarkable. There are diverticula in the transverse colon. Only the few small segments of the transverse colon are identified. This is not sufficient to determine if there is no diverticulitis. Impression: Worsening interstitial infiltrates. Patchy alveolar infiltrates bilaterally, not present previously. No pleural effusion. Cardiomegaly, unchanged. Signed by Bradley Marquis MD 09/20/2016 03:36 P
[2016-09-20 16:00] VITALS: BP 116/57
[2016-09-20] MEDS: OMEPRAZOLE 20 MG CAP PO SCH (17:20)
[2016-09-20 20:04] VITALS: BP 143/83
[2016-09-20] MEDS ORDERED: MIRALAX *UNIT DOSE* 17GM PACKET PO PRN (21:00)
[2016-09-20] MEDS ORDERED: FUROSEMIDE 40 MG/4 ML VIAL (J1940) IV ONE (21:00)
[2016-09-20 21:02] LABS: ABG BASE EXCESS 6.1 (-2.0-2.0); ABG HCO3 33.3 MEQ/L (22.0-26.0); ABG PARTIAL PRESSURE O2 66.4 mmHg (75.0-100.0); ABG STANDARD HCO3 29.9 MEQ/L (22.0-26.0); ABG TOTAL CO2 35.2 MEQ/L (23.0-31.0); ABG pH (ARTERIAL) 7.348 UNITS (7.350-7.450)
[2016-09-20 23:40] VITALS: BP 154/72
[2016-09-21] VITALS (12 sets, daily range): BP systolic 147–179; BP diastolic 66–99
[2016-09-21] MEDS: IPRATROPIUM 0.5MG/ALBUTEROL 2.5MG INH SOL UD 3ML (DUONEB)(J7620) NEB SCH ×4 (01:13→19:30)
[2016-09-21] MEDS: methylPREDNISolone INJ 125 MG/2 ML VIAL (J2930) IV SCH ×3 (02:43→17:22)
[2016-09-21] MEDS: SLF 3 ML SYR IV SCH ×3 (02:44→21:54)
[2016-09-21 05:22] LABS: MEAN CORPUSCULAR HEMOGLOBIN 27.4 pg (27.0-33.0); MEAN CORPUSCULAR HGB CONC 30.7 g/dl (32.0-36.5); MEAN CORPUSCULAR VOLUME 89.3 fl (80.0-96.0); RED CELL DISTRIBUTION WIDTH 16.5 % (11.5-14.5); WHITE BLOOD COUNT 6.2 K/mm3 (4.0-10.0)
[2016-09-21 05:34] LABS: ALBUMIN 3.2 GM/DL (3.2-5.2); CALCIUM LEVEL 8.5 MG/DL (8.8-10.2); CREATININE FOR GFR 2.7 MG/DL (0.55-1.02); GLOMERULAR FILTRATION RATE 17.9 (>32); MAGNESIUM LEVEL 3.2 MG/DL (1.8-2.4); PHOSPHORUS LEVEL 5.9 MG/DL (2.5-4.9); POTASSIUM SERUM 4.5 MEQ/L (3.5-5.1)
[2016-09-21] MEDS: ISOSORBIDE DIN (ISORDIL) 10 MG TAB PO SCH ×3 (06:00→21:53)
[2016-09-21] MEDS: **hydrALAZINE** 50 MG TAB PO SCH ×3 (06:11→21:53)
[2016-09-21] MEDS: ADVAIR DISKUS 250/50 INH PWD INH SCH ×2 (07:20→23:33)
[2016-09-21] MEDS: ASPIRIN 81 MG ENTERIC TAB PO SCH (07:59)
[2016-09-21] MEDS: FERROUS SULFATE 325MG TAB PO SCH (07:59)
[2016-09-21] MEDS: SENOKOT S TAB PO SCH (07:59)
[2016-09-21] MEDS: GABAPENTIN 100 MG CAP PO SCH ×2 (07:59→20:27)
[2016-09-21] MEDS: CARVedilol 12.5 MG TAB PO SCH ×2 (08:00→20:26)
[2016-09-21] MEDS: amLODIPine 10 MG TAB PO SCH (08:00)
[2016-09-21] MEDS: LEVEMIR (INSULIN DETEMIR) 1 UNITS/0.01ML SC SCH ×2 (08:00→20:28)
[2016-09-21] MEDS: LIDOCAINE 5% OINT 30 GM TOP SCH ×3 (08:01→20:28)
[2016-09-21] MEDS: HumaLOG INSULIN (NovoLOG) PER UNIT SC SCH ×4 (08:02→18:00)
[2016-09-21] MEDS: ACETAMINOPHEN TAB 650MG DOSE (2X325MG) PO PRN (08:11)
[2016-09-21 10:21] LABS: ABG BASE EXCESS 7.9 (-2.0-2.0); ABG HCO3 34.2 MEQ/L (22.0-26.0); ABG PARTIAL PRESSURE CO2 56.4 mmHg (35.0-45.0); ABG STANDARD HCO3 31.5 MEQ/L (22.0-26.0); ABG TOTAL CO2 35.9 MEQ/L (23.0-31.0)
[2016-09-21 10:46] LABS: ALBUMIN/GLOBULIN RATIO 1.03 (1.00-1.93); BILIRUBIN,TOTAL 0.5 MG/DL (0.2-1.0); TOTAL PROTEIN 6.3 GM/DL (6.4-8.2)
--- NOTE | 2016-09-21 11:25 | ECGEPIP ---
Stationary ECG Study [facility] Test Date: 2016-09-20 Pat Name: ADDI ALVARADO Department: Room: [place] [address] Gender: F [employer] Repairer: TAMRA : [id number] Requested By: ELIOT DURHAM Order Number: [id number] Reading MD: Madhav Grimm Measurements Intervals Johnson Rate: 83 P: 84 VT: 172 QRS: -1 QRSD: 116 T: 116 QT: 381 QTc: 449 Interpretive Statements SINUS RHYTHM MODERATE INTRAVENTRICULAR CONDUCTION DELAY Anterior HI, age indeterminate Nonspecific ST-T wave abnormalities ST DEVIATION AND MODERATE T-WAVE ABNORMALITY, CONSIDER LATERAL ISCHEMIA Similar to tracing done 09-14-16 Electronically Signed On 09-21-2016 11:25:16 EDT by Madhav Grimm
--- NOTE | 2016-09-21 11:31 | IPNPDOC ---
Date Seen The patient was seen on 09/21/16. Progress Note Hospitalist Progress Note Subjective: Patient is having a lot of trouble breathing; she is very uncomfortable in bed Objective: Physical Exam: Vitals: Vital Sign - Last 24 Hours 09/20/16 09/20/16 09/20/16 09/20/16 11:35 11:50 13:59 13:59 Temp 98.3 Pulse 81 Resp 20 B/P 136/58 136/58 136/58 Pulse Ox 92 O2 Delivery Nasal Cannula Nasal Cannula O2 Flow Rate 4.0 09/20/16 09/20/16 09/20/16 09/20/16 15:49 16:00 20:00 20:04 Temp 96.8 97.7 Pulse 82 88 Resp 20 22 B/P 116/57 143/83 Pulse Ox 94 91 O2 Delivery Nasal Cannula Nasal Cannula Nasal Cannula Nasal Cannula O2 Flow Rate 4.0 4.0 4.0 4.0 09/20/16 09/20/16 09/20/16 09/20/16 21:03 21:03 21:07 23:40 Temp 97.6 Pulse 88 81 Resp 20 B/P 143/83 143/83 143/83 154/72 Pulse Ox 90 O2 Delivery NIPPV (BIPAP/CPAP) O2 Flow Rate 6.0 09/21/16 09/21/16 09/21/16 09/21/16 00:00 04:00 04:35 06:00 Temp 97.2 Pulse 83 Resp 20 B/P 149/74 149/74 Pulse Ox 90 O2 Delivery BIPAP/CPAP BIPAP/CPAP NIPPV (BIPAP/CPAP) O2 Flow Rate 6.0 8.0 6.0 09/21/16 09/21/16 09/21/16 09/21/16 06:11 07:52 08:00 08:00 Temp 98.3 Pulse 83 83 Resp 19 B/P 149/74 147/66 147/66 Pulse Ox 93 O2 Delivery NIPPV (BIPAP/CPAP) BIPAP/CPAP O2 Flow Rate 6.0 8.0 09/21/16 10:40 Pulse 77 Resp 15 B/P 153/99 Pulse Ox 69 O2 Delivery Nasal Cannula O2 Flow Rate 4.0 General: awake, alert, visibly uncomfortable HEENT: Normocephalic, atraumatic, extraocular movements intact CV: Regular rate and rhythm Lungs: still with diffuse wheeze and very little air movement, using accessory muscles to breathe Abd: Soft, diffuse tenderness to palpation, normal bowel sounds Extremities: 1+ edema at the bilateral lower extremities Neuro: Alert and oriented, normal speech Psych: normal mood and affect Labs and Imaging: Laboratory Tests 09/21/16 04:57 Calcium Level 8.5 L, Phosphorus Level 5.9 H, Aspartate Amino Transf (AST/SGOT) 24, Alanine Aminotransferase (ALT/SGPT) 41, Alkaline Phosphatase 51, Total Bilirubin 0.5, Total Protein 6.3 L, Albumin 3.2, Red Blood Count 3.79 L, Mean Corpuscular Volume 89.3, Mean Corpuscular Hemoglobin 27.4, Mean Corpuscular Hemoglobin Concent 30.7 L, Red Cell Distribution Width 16.5 H Assessment and Plan: 85-year-old female with 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 She has also been found to have a UTI. 1. Acute on chronic diastolic CHF exacerbation: The patient is overall down in weight about 2.5 kgs. Given her kidney function, we have stopped lasix and aldactone at this time. Echocardiogram in May of last year showed an EF of 75% as well as grade 1 diastolic dysfunction. 2. Elevated troponin: The patient's troponin peaked at 0.26 and is now trending down. The patient denied any chest pain, and her EKG did not show any concerning changes. I suspect that this is secondary to strain from her acute CHF exacerbation. 3. UTI: The patient's urine culture grew Morganella. Now s/p 3 doses of Rocephin. She is currently afebrile with a normal white count. Blood cultures negative. Repeat UA to ensure clearance. 4. Acute on chronic kidney disease stage 3-4: The patient's baseline creatinine appears to be in the upper ones to two. Her creatinine upon admission was 2.24, had slightly improved to 1.99, but is now creeping up to 2.7. We have stopped all diuretics, and follow her kidney function closely. Given lack of improvement, will consult nephrology. 5. Diabetes mellitus type 2 complicated by peripheral neuropathy: Continue Levemir 10 units twice a day. This is a decrease from her home dose of 20 units in the morning, and 10 units in the evening. Also currently holding home short acting insulin that is usually administered at lunch time. We will continue sliding scale insulin while the patient is in-house. We also will continue the patient on her home Neurontin. 6. COPD: Appears to be having an exacerbation. We'll continue her on her home Advair, as well as scheduled and when necessary DuoNeb's. Continue solumedrol. O2 requirement fluctuates from 3L from 4L. She uses 2 liters at home. Despite several days of steroids, her lungs are very tight and she is clinically breathing hard. Repeat CT chest shows worsening interstitial infiltrates. Overnight, she desatted on her bipap. Will consult Dr. Flower and move the patient to the ICU. 7. Hypertension: The patient's blood pressure has been quite uncontrolled. We' ll continue her home daily Norvasc as well as home Coreg. Hydralazine and isordil were started here. I also increased her home coreg. We are finally seeing an improvement. 8. Coronary artery disease status post stents, hyperlipidemia: Continue home baby aspirin, as well as home beta hamlet. The patient does not report taking a statin, however, this is something that should be further discussed with her outpatient physicians as she may benefit from starting this. 9. Abd TTP: has been present for several days now but no vomiting; CT of the abd/pel is unremarkable. LFTs and lipase unremarkable. DVT prophylaxis: Teds and SCDs Dispo: pending improvement in respiratory status and kidney function; move to the ICU and consult pulmonology and nephrology I called and updated her daughter, Mariama Prabhakar, via telephone [phone]. VS, I&O, 24H, Fishbone Vital Signs/I&O Vital Signs Date Time Temp Pulse Resp B/P Pulse Ox O2 Delivery O2 Flow Rate FiO2 09/21/16 10:40 77 15 153/99 69 Nasal Cannula 4.0 09/21/16 07:52 98.3 I&O- Last 24 Hours up to 6 AM 09/21/16 05:59 Intake Total 480 ml Output Total 1175 ml Balance -695 ml Laboratory Data 24H LABS Laboratory Tests 2 09/20/16 11:33: Bedside Glucose (Misc Panel) 310H 09/20/16 16:40: Bedside Glucose (Misc Panel) 152H 09/20/16 20:19: Bedside Glucose (Misc Panel) 140H 09/20/16 20:56: Arterial Blood pH 7.348L, Arterial Blood Partial Pressure CO2 62.0*H, Arterial Blood Partial Pressure O2 66.4L, Arterial Blood Total CO2 35.2H, Arterial Blood HCO3 33.3H, Arterial Blood Base Excess 6.1H, Arterial Blood Oxygen Saturation 92.6L, Blood Gas Bicarbonate Standard 29.9H 09/21/16 04:57: Blood Urea Nitrogen 94H, Creatinine 2.70H, Sodium Level 138, Potassium Level 4.5 , Chloride Level 95L, Carbon Dioxide Level 35H, Calcium Level 8.5L, Phosphorus Level 5.9H, Aspartate Amino Transf (AST/SGOT) 24, Alanine Aminotransferase (ALT/ SGPT) 41, Alkaline Phosphatase 51, Total Bilirubin 0.5, Total Protein 6.3L, Albumin 3.2, Albumin/Globulin Ratio 1.03, Amylase Level 98, Anion Gap 8, Glomerular Filtration Rate 17.9L, Lipase 304, Magnesium Level 3.2H 09/21/16 10:13: Arterial Blood pH 7.400, Arterial Blood Partial Pressure CO2 56.4H, Arterial Blood Partial Pressure O2 55.0L, Arterial Blood Total CO2 35.9H, Arterial Blood HCO3 34.2H, Arterial Blood Base Excess 7.9H, Arterial Blood Oxygen Saturation 88.0L, Blood Gas Bicarbonate Standard 31.5H CBC/BMP Laboratory Tests 09/21/16 04:57 Calcium Level 8.5 L, Phosphorus Level 5.9 H, Aspartate Amino Transf (AST/SGOT) 24, Alanine Aminotransferase (ALT/SGPT) 41, Alkaline Phosphatase 51, Total Bilirubin 0.5, Total Protein 6.3 L, Albumin 3.2, Red Blood Count 3.79 L, Mean Corpuscular Volume 89.3, Mean Corpuscular Hemoglobin 27.4, Mean Corpuscular Hemoglobin Concent 30.7 L, Red Cell Distribution Width 16.5 H Microbiology Microbiology 09/14/16 Blood Culture - Final, Complete NO GROWTH AFTER 5 DAYS 09/14/16 Urine Culture - Final, Complete Morganella Morganii Ssp [facility] Kwong Sep 21, 2016 11:31
--- NOTE | 2016-09-21 11:43 | CCN ---
DATE: 09/21/2016 CRITICAL CARE NOTE Critical care time was 1 hour; this excludes all procedures. I was urgently called to the bedside by the patient's primary physician, Dr. Aden, to evaluate this patient for acute on chronic hypoxic respiratory failure. The patient was admitted on 09/14/2016, has been intermittently placed on her home bilevel positive airway pressure (BiPAP) since that time. She has been complaining of abdominal discomfort nearly on a daily basis, has had multiple imaging of her abdomen and laboratory evaluation without any significant findings. She continues to remain significantly hypoxic and in respiratory distress using abdominal muscles to breathe. On my arrival, she was on her home BiPAP settings estimated 18 over 15, based on interrogation of the machine. She had increased work of breathing and was complaining of back pain. Diuresis was attempted due to her history of edema. She has had acute on chronic renal failure. The patient is not able to give much of a history due to her shortness of breath. I brought her back to the intensive care unit, adjusted her bilevel noninvasive therapy for a better inspiratory pressure to obtain tidal volumes of 350. Currently I adjusted her settings to 22 over 15. She is severely hypoxic with any removal of the bilevel. PHYSICAL EXAMINATION: Temperature is 98.3, pulse is 83, respiratory rate is 19, blood pressure is 147/66, oxygen saturation previously was 93% on 6 liters earlier this morning before her respiratory event. Intake and output: She is net negative 770 over the past 24 hours. HEENT: Sclerae clear but edematous. Pupils are equal and reactive to light. Mucous membranes are moist without lesions. Mask is in place. Neck is supple. No tracheal deviation. No mass. Jugular venous pressure (JVP) is difficult to assess due to body habitus. Cardiac: Distant S1, S2 without audible murmur, rub or gallop. Point of maximum impulse (PMI) is displaced laterally. There is no significant lower extremity edema. No buttock edema. No sacral edema. Pulmonary: Decreased air entry throughout all lung schulz. I do not auscultate any wheezing. However, the patient was started on prednisone for wheezing. There is very poor air entry. She is using abdominal muscles to breathe with forced exhalation. Abdomen is obese, soft, tender in almost all quadrants. The patient is quite jumpy with exam. Any time a hand is placed near her, she jumps. Difficult to assess rebound and guarding. It does appear, based on my exam, that there may be some increased tenderness to palpation in the right upper quadrant. After an extensive abdominal exam, there does not appear to be any guarding with time. She does have a positive Cortez's sign; however, this is questionable due to the difficulty of her exam. Bowel sounds are hypoactive. There is tympany to percussion. I do not palpate any abdominal hernias or masses. Extremities: No cyanosis, clubbing or edema. Musculoskeletal: Significant scoliosis. No evidence of joint effusion. Neurologic: She does have some tremor but does not appear to be in asterixis. She has no myoclonus. No unilateral weakness. She is able to answer yes or no questions for the most part. Laboratory evaluation shows a white count of 6.2, hemoglobin 10.4, platelet count 163, sodium 138, potassium 4.5, chloride 95, bicarbonate 35, BUN of 94, creatinine of 2.7. Arterial blood gas shows a pH of 7.35, pCO2 of 62, pAO2 of 66.[address] was performed yesterday, which shows prominent pulmonary vasculature, poor inspiratory effort. I do not think there is any significant interstitial abnormalities other than the edema. She does have hyperdynamic airway collapse with significant narrowing of the trachea on the chest CT. She has significant cardiomegaly and significant scoliosis and curvature of the spine. Abdominal CT scan report was reviewed. There were no remarkable findings. IMPRESSION: 1. Hypoxic hypercarbic respiratory failure likely secondary to obesity hypoventilation with dynamic airway collapse. There is some report of chronic obstructive pulmonary disease; however, I believe this is most likely obesity hypoventilation with concomitant restriction from scoliosis. She is a DO NOT RESUSCITATE (DNR); therefore, will attempt noninvasive ventilation; however, not become more aggressive after this. 2. Abdominal discomfort. I agree with additional evaluation including repeat amylase, lipase, total bilirubin, LFTs due to perceived right upper quadrant tenderness. However, the patient's abdomen is quite difficult to examine. Her abdominal discomfort may simply be from the accessory muscle use. She was treated for urinary tract infection and is now complaining of back pain; therefore, would consider retesting urine and covering for her urinary pathogen that was obtained on urine culture. Will continue to monitor for further signs and symptoms of infection and sepsis. 3. Chronic prednisone use. I am unsure of the exact indication of her chronic prednisone use. Would recommend stress dose steroids with hydrocortisone. I do not believe she has true bronchospasm on exam. However, I am examining her after her steroids were initiated. 4. Renal failure. She has acute on chronic renal dysfunction. Dr. Stuart is following her for this. IMPRESSION: Acute on chronic hypercarbic hypoxic respiratory failure. Overall poor prognosis given the chronicity of her hypercarbic respiratory failure. I believe this is a chronic issue with a possible new event causing decompensation. Will continue to monitor for signs and symptoms of infection and monitor her fluid status closely. DENNIS
[2016-09-21] MEDS: OMEPRAZOLE 20 MG CAP PO SCH (17:22)
[2016-09-21] MEDS ORDERED: GLUCAGON FOR INJ 1 MG VIAL (J1610) SC PRN (19:30)
[2016-09-21] MEDS ORDERED: GLUCOSE 4 GM CHEW TABLET PO PRN (19:30)
[2016-09-21] MEDS ORDERED: DEXTROSE 50% 50 ML SYRINGE IV PRN (19:30)
[2016-09-22] VITALS (10 sets, daily range): BP systolic 155–192; BP diastolic 66–85; O2SAT 94
[2016-09-22] MEDS: HumaLOG INSULIN (NovoLOG) PER UNIT SC SCH ×5 (00:14→23:42)
[2016-09-22] MEDS: IPRATROPIUM 0.5MG/ALBUTEROL 2.5MG INH SOL UD 3ML (DUONEB)(J7620) NEB SCH ×4 (01:39→19:13)
[2016-09-22] MEDS: methylPREDNISolone INJ 125 MG/2 ML VIAL (J2930) IV SCH ×3 (02:39→17:58)
[2016-09-22 04:27] LABS: BASO % 0.1 % (0.0-1.0); EOS % 0.7 % (0.0-3.0); LARGE UNSTAINED CELL # 0.1 K/mm3 (0.0-0.4); LARGE UNSTAINED CELL % 0.8 % (0.0-4.0); LYMPH # 0.2 K/mm3 (1.5-4.5); LYMPH % 3.6 % (24.0-44.0); MEAN CORPUSCULAR HEMOGLOBIN 29.5 pg (27.0-33.0); MEAN CORPUSCULAR VOLUME 89.5 fl (80.0-96.0); MONO # 0.3 K/mm3 (0.0-0.8); NEUTROPHILS # 5.5 K/mm3 (1.8-7.7); NEUTROPHILS % 89.9 % (36.0-66.0); PLATELET COUNT, AUTOMATED 180 k/mm3 (150-450); RED CELL DISTRIBUTION WIDTH 16.5 % (11.5-14.5); WHITE BLOOD COUNT 6.2 K/mm3 (4.0-10.0)
[2016-09-22 04:46] LABS: ALBUMIN 3.2 GM/DL (3.2-5.2); CALCIUM LEVEL 8.7 MG/DL (8.8-10.2); CREATININE FOR GFR 2.53 MG/DL (0.55-1.02); GLOMERULAR FILTRATION RATE 19.3 (>32); MAGNESIUM LEVEL 3.5 MG/DL (1.8-2.4); PHOSPHORUS LEVEL 4.8 MG/DL (2.5-4.9); POTASSIUM SERUM 4.5 MEQ/L (3.5-5.1)
[2016-09-22] MEDS: **hydrALAZINE** 50 MG TAB PO SCH ×3 (05:20→21:24)
[2016-09-22] MEDS: ISOSORBIDE DIN (ISORDIL) 10 MG TAB PO SCH ×3 (05:22→21:24)
[2016-09-22] MEDS: SLF 3 ML SYR IV SCH ×3 (05:29→21:25)
[2016-09-22] MEDS: ADVAIR DISKUS 250/50 INH PWD INH SCH ×2 (08:07→19:13)
[2016-09-22] MEDS: LEVEMIR (INSULIN DETEMIR) 1 UNITS/0.01ML SC SCH ×2 (08:23→21:25)
[2016-09-22] MEDS: GABAPENTIN 100 MG CAP PO SCH ×2 (08:24→20:22)
[2016-09-22] MEDS: ACETAMINOPHEN TAB 650MG DOSE (2X325MG) PO PRN (08:24)
[2016-09-22] MEDS: ASPIRIN 81 MG ENTERIC TAB PO SCH (08:24)
[2016-09-22] MEDS: amLODIPine 10 MG TAB PO SCH (08:25)
[2016-09-22] MEDS: FERROUS SULFATE 325MG TAB PO SCH (08:25)
[2016-09-22] MEDS: CARVedilol 12.5 MG TAB PO SCH ×2 (08:25→20:22)
[2016-09-22] MEDS: SENOKOT S TAB PO SCH (08:26)
[2016-09-22] MEDS: LIDOCAINE 5% OINT 30 GM TOP SCH ×3 (09:00→20:22)
[2016-09-22] MEDS ORDERED: MOM 30ML SUSPENSION UDC PO PRN (10:00)
--- NOTE | 2016-09-22 10:10 | IPNPDOC ---
Date Seen The patient was seen on 09/22/16. Progress Note Hospitalist Progress Note Subjective: Patient is sitting is chair and appears more comfortable; she states she does not feel any better but she also states she does not remember anything from yesterday Objective: Physical Exam: Vitals: Vital Sign - Last 24 Hours 09/21/16 09/21/16 09/21/16 09/21/16 10:40 10:40 10:40 11:20 Temp 98.4 Pulse 77 77 Resp 15 15 B/P 153/99 153/99 Pulse Ox 69 69 O2 Delivery Nasal Cannula Nasal Cannula Nasal Cannula O2 Flow Rate 4.0 4.0 4.0 FiO2 45 09/21/16 09/21/16 09/21/16 09/21/16 12:00 12:00 13:59 14:00 Temp 97.7 Pulse 71 75 Resp 16 13 B/P 153/69 163/78 158/74 Pulse Ox 93 94 O2 Delivery NIPPV (BIPAP/CPAP) BIPAP/CPAP NIPPV (BIPAP/CPAP) FiO2 45 40 40 09/21/16 09/21/16 09/21/16 09/21/16 15:21 16:00 16:00 18:00 Temp 97.3 Pulse 72 73 Resp 15 14 B/P 167/77 166/89 Pulse Ox 95 93 O2 Delivery BIPAP/CPAP NIPPV (BIPAP/CPAP) NIPPV (BIPAP/CPAP) FiO2 35 35 35 35 09/21/16 09/21/16 09/21/16 09/21/16 19:00 20:00 20:00 21:00 Temp 97.0 Pulse 72 71 73 Resp 16 16 B/P 170/79 165/77 170/84 Pulse Ox 92 93 91 O2 Delivery NIPPV (BIPAP/CPAP) NIPPV (BIPAP/CPAP) BIPAP/CPAP NIPPV (BIPAP/CPAP) FiO2 35 35 35 35 09/21/16 09/21/16 09/22/16 09/22/16 22:00 23:00 00:00 00:00 Temp 98.6 Pulse 69 71 73 Resp 16 B/P 179/79 166/80 173/81 Pulse Ox 94 94 94 O2 Delivery NIPPV (BIPAP/CPAP) NIPPV (BIPAP/CPAP) NIPPV (BIPAP/CPAP) FiO2 35 35 35 35 409/22/16 09/22/16 09/22/16 01:00 02:00 04:00 05:00 Temp 98.6 Pulse 75 76 77 Resp 16 16 16 B/P 168/79 191/81 165/75 Pulse Ox 95 96 95 O2 Delivery NIPPV (BIPAP/CPAP) NIPPV (BIPAP/CPAP) NIPPV (BIPAP/CPAP) BIPAP/CPAP FiO2 35 35 35 35 09/22/16 09/22/16 09/22/16 09/22/16 05:20 05:22 08:00 08:00 Temp 98.6 Pulse 77 Resp 20 B/P 165/75 165/75 164/69 Pulse Ox 95 O2 Delivery NIPPV (BIPAP/CPAP) BIPAP/CPAP FiO2 35 35 09/22/16 09/22/16 09/22/16 08:08 08:25 08:25 Pulse 76 77 B/P 164/69 164/69 FiO2 35 General: awake, alert, appears comfortable HEENT: Normocephalic, atraumatic, extraocular movements intact CV: Regular rate and rhythm Lungs: moving air, hardly using any accessory muscles Abd: Soft, diffuse tenderness to palpation, normal bowel sounds Extremities: 1+ edema at the bilateral lower extremities Neuro: Alert and oriented, normal speech Psych: normal mood and affect Labs and Imaging: Laboratory Tests 09/22/16 04:18 Anion Gap 7 L, Red Blood Count 3.91 L, Mean Corpuscular Volume 89.5, Mean Corpuscular Hemoglobin 29.5, Mean Corpuscular Hemoglobin Concent 33.0, Red Cell Distribution Width 16.5 H, Neutrophils (%) (Auto) 89.9 H, Lymphocytes (%) (Auto ) 3.6 L, Monocytes (%) (Auto) 5.0, Eosinophils (%) (Auto) 0.7, Basophils (%) ( Auto) 0.1, Neutrophils # (Auto) 5.5, Lymphocytes # (Auto) 0.2 L, Monocytes # ( Auto) 0.3, Eosinophils # (Auto) 0.0, Basophils # (Auto) 0.0 Assessment and Plan: 85-year-old female with 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 She has also been found to have a UTI. 1. Acute on chronic diastolic CHF exacerbation: The patient is overall down in weight about 2.5 kgs. Given her kidney function, we have stopped lasix and aldactone at this time. Echocardiogram in May of last year showed an EF of 75% as well as grade 1 diastolic dysfunction. Appears to be euvolemic at this time. 2. Elevated troponin: The patient's troponin peaked at 0.26 and is now trending down. The patient denied any chest pain, and her EKG did not show any concerning changes. I suspect that this is secondary to strain from her acute CHF exacerbation. 3. UTI: The patient's urine culture grew Morganella. Now s/p 3 doses of Rocephin. She is currently afebrile with a normal white count. Blood cultures negative. Repeat UA much improved; rUcx pending. 4. Acute on chronic kidney disease stage 3-4: The patient's baseline creatinine appears to be in the upper ones to two. Her creatinine upon admission was 2.24, and with diuresis, jumped up to 2.7. We have stopped all diuretics, and follow her kidney function closely. Nephrology following. Cr improved a bit today to 2.53. 5. Diabetes mellitus type 2 complicated by peripheral neuropathy: Continue Levemir 10 units twice a day. This is a decrease from her home dose of 20 units in the morning, and 10 units in the evening. Also currently holding home short acting insulin that is usually administered at lunch time. We will continue sliding scale insulin while the patient is in-house. We also will continue the patient on her home Neurontin. 6. COPD: Initially appeared to be having an exacerbation but did not show any improvement with steroids. Has been evaluated by Dr. Flower, who thinks she has obesity hypoventilation syndrome with dynamic airway compromise. She spent all day 09/[address] Flower adjusting the settings, and today she is much improved. She will need to wear bipap whenever she sleeps; new settings are . We'll continue her on her home Advair, as well as scheduled and when necessary DuoNeb's. Continue solumedrol, but hopefully start to wean tomorrow. She uses 2 liters at home. 7. Hypertension: The patient's blood pressure has been quite uncontrolled. We' ll continue her home daily Norvasc as well as home Coreg. Hydralazine and isordil were started here. I also increased her home coreg. 8. Coronary artery disease status post stents, hyperlipidemia: Continue home baby aspirin, as well as home beta hamlet. The patient does not report taking a statin, however, this is something that should be further discussed with her outpatient physicians as she may benefit from starting this. 9. Abd TTP: has been present for several days now but no vomiting; CT of the abd/pel is unremarkable. LFTs and lipase unremarkable. Quite possibly secondary to muscle fatigue from using so many accessory muscles while in respiratory distress. Also potentially complicated by constipation; will increase bowel regimen. DVT prophylaxis: Teds and SCDs Dispo: pending improvement in respiratory status and kidney function; is now in the ICU and pulmonology and nephrology are following VS, I&O, 24H, Fishbone Vital Signs/I&O Vital Signs Date Time Temp Pulse Resp B/P Pulse Ox O2 Delivery O2 Flow Rate FiO2 09/22/16 08:25 77 164/69 09/22/16 08:08 35 09/22/16 08:00 BIPAP/CPAP 09/22/16 08:00 98.6 20 95 09/21/16 10:40 4.0 I&O- Last 24 Hours up to 6 AM 09/22/16 06:00 Intake Total 680 ml Output Total 1540 ml Balance -860 ml Laboratory Data 24H LABS Laboratory Tests 2 09/21/16 10:13: Arterial Blood pH 7.400, Arterial Blood Partial Pressure CO2 56.4H, Arterial Blood Partial Pressure O2 55.0L, Arterial Blood Total CO2 35.9H, Arterial Blood HCO3 34.2H, Arterial Blood Base Excess 7.9H, Arterial Blood Oxygen Saturation 88.0L, Blood Gas Bicarbonate Standard 31.5H 09/21/16 11:27: Urine Amorphous Sediment , Urine Appearance CLEAR, Urine Color YELLOW, Urine pH 5.0, Urine Specific [place] 1.013, Urine Protein NEGATIVE, Urine Glucose (UA) 1+ H, Urine Ketones NEGATIVE, Urine Urobilinogen 0.2, Urine Bilirubin NEGATIVE, Urine Leukocyte Esterase NEGATIVE, Urine Bacteria (Auto) 1+H, Urine Blood NEGATIVE, Urine Calcium Carbonate Cryst(Auto) , Urine Calcium Oxalate Cryst ( Auto) , Urine Calcium Phosphate Vee (Auto) , Urine Cellular Casts , Urine Cystine Crystals , Urine Granular Casts (Auto) , Urine Hyaline Casts (Auto) 4, Urine Leucine Crystals , Urine Mucus (Auto) SMALL, Urine Nitrite NEGATIVE, Urine Oval Fat Bodies (Auto) , Urine RBC (Auto) 1, Urine Renal Epithelial Cells , Urine Sperm (Auto) , Urine Squamous Epithelial Cells 0, Urine Transitional Epithelial Cells , Urine Trichomonas (Auto) , Urine Triple Phosphate Cryst (Auto ) , Urine Tyrosine Crystals , Urine Uric Acid Crystals (Auto) , Urine WBC (Auto ) 0, Urine Waxy Casts (Auto) , Urine Yeast-Like Cells (Auto) 09/21/16 11:54: Bedside Glucose (Misc Panel) 211H 09/21/16 17:12: Bedside Glucose (Misc Panel) 171H 09/21/16 20:21: Bedside Glucose (Misc Panel) 159H 09/21/16 23:51: Bedside Glucose (Misc Panel) 196H 09/22/16 04:18: Albumin 3.2, Blood Urea Nitrogen 99H, Creatinine 2.53H, Sodium Level 138, Potassium Level 4.5, Chloride Level 97L, Carbon Dioxide Level 34H, Anion Gap 7L , White Blood Count 6.2, Red Blood Count 3.91L, Hemoglobin 11.5L, Hematocrit 35.0L, Mean Corpuscular Volume 89.5, Mean Corpuscular Hemoglobin 29.5, Mean Corpuscular Hemoglobin Concent 33.0, Red Cell Distribution Width 16.5H, Platelet Count 180, Neutrophils (%) (Auto) 89.9H, Lymphocytes (%) (Auto) 3.6L, Monocytes (%) (Auto) 5.0, Eosinophils (%) (Auto) 0.7, Basophils (%) (Auto) 0.1, Neutrophils # (Auto) 5.5, Lymphocytes # (Auto) 0.2L, Monocytes # (Auto) 0.3, Eosinophils # (Auto) 0.0, Basophils # (Auto) 0.0, Calcium Level 8.7L, Glomerular Filtration Rate 19.3L, Large Unclassified Cells # 0.1, Large Unclassified Cells % 0.8, Magnesium Level 3.5H, Phosphorus Level 4.8 09/22/16 05:24: Bedside Glucose (Misc Panel) 181H CBC/BMP Laboratory Tests 09/22/16 04:18 Anion Gap 7 L, Red Blood Count 3.91 L, Mean Corpuscular Volume 89.5, Mean Corpuscular Hemoglobin 29.5, Mean Corpuscular Hemoglobin Concent 33.0, Red Cell Distribution Width 16.5 H, Neutrophils (%) (Auto) 89.9 H, Lymphocytes (%) (Auto ) 3.6 L, Monocytes (%) (Auto) 5.0, Eosinophils (%) (Auto) 0.7, Basophils (%) ( Auto) 0.1, Neutrophils # (Auto) 5.5, Lymphocytes # (Auto) 0.2 L, Monocytes # ( Auto) 0.3, Eosinophils # (Auto) 0.0, Basophils # (Auto) 0.0 Microbiology Microbiology 09/14/16 Blood Culture - Final, Complete NO GROWTH AFTER 5 DAYS 09/21/16 Urine Culture, Received Pending 09/14/16 Urine Culture - Final, Complete Morganella Morganii Ssp BOLA Kwong Sep 22, 2016 10:10
--- NOTE | 2016-09-22 13:35 | CR ---
DATE OF CONSULTATION: 09/21/2016 REQUESTING PHYSICIAN: Coty Aden MD REASON FOR CONSULTATION: Acute renal failure superimposed on chronic kidney disease. HISTORY OF PRESENT ILLNESS: Ms. Gallagher is an 84-year-old female with multiple chronic medical problems, including stage III of chronic kidney disease, diabetes, chronic obstructive pulmonary disease (COPD), obstructive sleep apnea, diastolic congestive heart failure (CHF), hypertension, coronary artery disease, and hyperlipidemia. She was admitted to [facility] on 09/14/2016 for shortness of breath. She was felt to be in congestive heart failure (CHF) and has been diuresed. Over the last few days her kidney function has worsened with increase in serum creatinine due to which a nephrology consultation was requested. The patient is seen this morning in progressive care unit (PCU). PAST MEDICAL AND SURGICAL HISTORY: Significant for: 1. History of diabetes. 2. Chronic obstructive pulmonary disease (COPD). 3. Obstructive sleep apnea. 4. Diastolic congestive heart failure (CHF). 5. Stage III of chronic kidney disease. 6. Hypertension. 7. Hyperlipidemia. 8. Coronary artery disease. 9. History of diabetic neuropathy. 10. History of coronary angioplasty with stents. 11. History of total hysterectomy. 12. History of esophageal dilatation. 13. History of tonsillectomy. 14. History of appendectomy. ALLERGIES: The patient has no known drug allergies. HOME MEDICATIONS: Her home medications include: - Tylenol - allopurinol 100 mg daily - Norvasc 10 mg daily - aspirin 81 mg daily - Dulcolax as needed for constipation - Coreg 3.125 mg twice a day - vitamin D 2000 units twice a day - Senokot one tablet daily - iron 325 mg daily - gabapentin 100 mg twice a day - Levemir insulin 10 units at bedtime and 20 units in the morning - omeprazole 40 mg at bedtime - Advair Diskus twice a day - ranitidine one tablet twice a day - torsemide 20 mg twice a day - spironolactone 25 mg daily at home PERSONAL AND SOCIAL HISTORY: The patient is a poor historian. She quit smoking about 20 years ago. She has no history of alcohol or drug use. FAMILY HISTORY: Negative for end stage renal disease. REVIEW OF SYSTEMS: The patient is a poor historian; however, she was able to answer simple questions. She denies any fever or chills. Ears, nose and throat are unremarkable. Cardiovascular system is significant for dyspnea. Respiratory system is significant for chronic dyspnea and continuous positive airway pressure (CPAP) use. She denies any hemoptysis. Respiratory system is negative for pleuritic type of chest pain. Cardiac system is negative for chest pain. GI system is significant for abdominal pain and no appetite. She denies any rectal bleeding or black colored stools. system is negative for dysuria or hematuria. Musculoskeletal system is significant for chronic degenerative arthritis. She is morbidly obese. Endocrine system is significant for diabetes. Hematological system is significant for chronic anemia. She does not have any bruising or bleeding. Skin is negative for rash or ulcers. Neurological system is significant for mild dementia. PHYSICAL EXAMINATION: This is a morbidly obese, elderly lady, quite uncomfortable and restless in the bed. Temperature 98.3 degrees Fahrenheit, heart rate is 84 per minute and respiratory rate is 24 per minute. Blood pressure is 147/66 mmHg and oxygen saturation 93% on BIPAP. Intake and output records from yesterday show total intake 480 and output 550 mL. Cumulative intake and output since admission has been negative by 1.76 liters. Head is atraumatic. Neck is obese and jugular venous distention (JVD) is very difficult to be assessed. Oral mucosa is dry. Pupils are equal and reactive to light. Sclerae anicteric. Heart sounds are distant. Lungs have only moderate bilateral air entry. Abdomen is obese and tender. Bowel sounds are present. I could not palpate any organomegaly. Extremities have no cyanosis or clubbing. Skin has no rash or ulcers. Neurologically, she is quite restless, awake and able to answer a few simple questions. She does not seem to have focal neurological deficit. LABORATORY DATA: WBC count is 6.2, hemoglobin 10.4 and hematocrit 33.9. Platelets 163. On admission, her WBC count was 10.8, hemoglobin 12.6 and hematocrit 40.9. Blood gas yesterday showed a pH of 7.34, PCO2 of 62, and PO2 of 66, bicarbonate of 30. Today's blood gas showed a pH of 7.40, PCO2 of 56.4 and PO2 of 5, bicarbonate is 31. Today her BUN is 94 and creatinine 2.70. Sodium is 138 and potassium 4.5. Chloride 95 and CO2 of 35. Calcium is 8.5 and phosphorous 5.9. On admission her BUN was 42 and creatinine 2.24. Urinalysis showed 2+ glucose, no protein or blood. She has had multiple imaging studies done. I have reviewed CAT scan of chest, abdomen and pelvis independently. She has an atrophic right kidney and no hydronephrosis on the left. Chest CT shows mostly pulmonary vascular congestion with minimal effusion and no significant infiltrates. I have discussed her chest CT scan with Dr. Flower, who feels that the patient has dynamic collapse of her airway leading to her shortness of breath. PROBLEMS: 1. Acute renal failure superimposed on chronic kidney disease. The patient has significant underlying chronic kidney disease, which is probable stage IV and not stage III, as I was informed. She has an atrophic right kidney. With her advanced age and only one kidney, she is at high risk for acute renal failure in the setting of congestive heart failure (CHF) or any infections. In any event, she has been diuresed, which caused the increase in BUN and creatinine. Clinically, she does not look in any significant congestion or volume overload at this point. When her chest CT scan was done, she was probably more volume overloaded, however, has been diuresed since then. I will recommend to hold off on further diuretics until her respiratory status is optimized with BiPAP. 2. Respiratory failure with history of obstructive sleep apnea and chronic obstructive pulmonary disease (COPD). Dr. Flower is being consulted, and the patient is going to be transferred to the intensive care unit (ICU). I agree with plans for aggressive respiratory care for her chronic issues, which is most likely contributing to her shortness of breath more compared with congestive heart failure (CHF). 3. Anemia. Her anemia is mild and does not need any intervention at this point. 4. Abdominal tenderness. The patient had two CAT scans of the abdomen and pelvis, which did not show any acute abnormality. I suspect that she might have some diverticulitis; however, CAT scan did not show any significant evidence for it. In view of her multiorgan problems and worsening condition, probably broad spectrum antibiotic coverage is appropriate. I thank you for involving me in the care of Ms. Gallagher. I will follow her along with you. DENNIS
[2016-09-22] MEDS: PIPERACILLIN/TAZOBACTAM SOD 2.25 GM in D5W MINI-BAG PLUS 50 ML IV SCH ×2 (16:12→21:24)
[2016-09-22] MEDS: OMEPRAZOLE 20 MG CAP PO SCH (17:58)
--- NOTE | 2016-09-22 21:39 | IPN ---
DATE: 09/22/2016 SUBJECTIVE: Ms. Gallagher is seen this afternoon on her bedside in intensive care unit. She is currently resting while using her bilevel positive airway pressure (BiPAP). Nursing staff reports that earlier she was up in the chair on nasal cannula and she tolerated well. She continues to be quite short of breath and is back on BiPAP. Nursing staff also reports that she ate reasonably well and has no vomiting or diarrhea. PHYSICAL EXAMINATION: VITAL SIGNS: Temperature 98.2 degrees Fahrenheit, heart rate 76 per minute and respiratory rate 20 per minute. Blood pressure 154/67 mmHg and oxygen saturation 94% on BiPAP. Intake and output records from yesterday showed total intake only 380 and output 1290 mL. HEENT: Her head is atraumatic. Neck veins are difficult to be assessed. She is currently using BiPAP. HEART: Sounds are regular. RESPIRATORY: Lungs with moderate bilateral air entry. ABDOMEN: Obese and still some mild tenderness. Bowel sounds are present. EXTREMITIES: Without any pitting edema. There is no cyanosis or clubbing. LABORATORY DATA: Today's labs show WBC count 6.2, hemoglobin 11.5 and hematocrit 35.0. Sodium 138 and potassium 4.5. BUN 99 and creatinine 2.53. Magnesium level is 3.5 while phosphorus is 4.8 and calcium 8.7. PROBLEMS: 1. Acute kidney injury superimposed on chronic kidney disease. The patient has nonfunctioning right kidney. Her acute renal failure is slightly improved today. There are no uremic symptoms and her electrolytes are normal. 2. Hypoxemia. Most likely this is more related to her obstructive sleep apnea and chronic obstructive pulmonary disease (COPD) than volume status. She is spontaneously diuresing. Her diuretics have been on hold due to acute renal failure. 3. Hypermagnesemia. Most likely this is related to acute renal failure and medications. I suggest to avoid any magnesium containing products including milk of magnesia. She is currently not on any other magnesium supplement. 4. Anemia. This is very mild and does not need any intervention.
[2016-09-23] VITALS (8 sets, daily range): BP systolic 138–174; BP diastolic 63–87; O2SAT 96
[2016-09-23] MEDS: IPRATROPIUM 0.5MG/ALBUTEROL 2.5MG INH SOL UD 3ML (DUONEB)(J7620) NEB SCH ×4 (01:41→19:40)
[2016-09-23] MEDS: methylPREDNISolone INJ 125 MG/2 ML VIAL (J2930) IV SCH (02:15)
[2016-09-23] MEDS: PIPERACILLIN/TAZOBACTAM SOD 2.25 GM in D5W MINI-BAG PLUS 50 ML IV SCH ×4 (04:32→21:32)
[2016-09-23 04:46] LABS: BASO % 0.1 % (0.0-1.0); EOS % 0.4 % (0.0-3.0); LARGE UNSTAINED CELL # 0.1 K/mm3 (0.0-0.4); LARGE UNSTAINED CELL % 0.7 % (0.0-4.0); LYMPH # 0.3 K/mm3 (1.5-4.5); LYMPH % 3.8 % (24.0-44.0); MEAN CORPUSCULAR HEMOGLOBIN 27.7 pg (27.0-33.0); MEAN CORPUSCULAR HGB CONC 31.2 g/dl (32.0-36.5); MEAN CORPUSCULAR VOLUME 88.7 fl (80.0-96.0); MONO # 0.4 K/mm3 (0.0-0.8); MONO % 5.7 % (0.0-5.0); NEUTROPHILS # 6.1 K/mm3 (1.8-7.7); NEUTROPHILS % 89.3 % (36.0-66.0); PLATELET COUNT, AUTOMATED 169 k/mm3 (150-450); RED CELL DISTRIBUTION WIDTH 16.3 % (11.5-14.5); WHITE BLOOD COUNT 6.8 K/mm3 (4.0-10.0)
[2016-09-23 05:01] LABS: CALCIUM LEVEL 8.9 MG/DL (8.8-10.2); CREATININE FOR GFR 2.4 MG/DL (0.55-1.02); GLOMERULAR FILTRATION RATE 20.5 (>32); MAGNESIUM LEVEL 3.4 MG/DL (1.8-2.4); POTASSIUM SERUM 4.4 MEQ/L (3.5-5.1)
[2016-09-23] MEDS: ISOSORBIDE DIN (ISORDIL) 10 MG TAB PO SCH ×3 (05:53→21:32)
[2016-09-23] MEDS: **hydrALAZINE** 50 MG TAB PO SCH ×3 (05:53→21:32)
[2016-09-23] MEDS: HumaLOG INSULIN (NovoLOG) PER UNIT SC SCH ×4 (05:54→21:00)
[2016-09-23] MEDS: SLF 3 ML SYR IV SCH ×3 (05:54→21:32)
[2016-09-23] MEDS: ADVAIR DISKUS 250/50 INH PWD INH SCH ×2 (08:09→19:40)
[2016-09-23] MEDS: SENOKOT S TAB PO SCH (08:24)
[2016-09-23] MEDS: ASPIRIN 81 MG ENTERIC TAB PO SCH (08:24)
[2016-09-23] MEDS: CARVedilol 12.5 MG TAB PO SCH ×2 (08:24→21:32)
[2016-09-23] MEDS: FERROUS SULFATE 325MG TAB PO SCH (08:24)
[2016-09-23] MEDS: amLODIPine 10 MG TAB PO SCH (08:24)
[2016-09-23] MEDS: GABAPENTIN 100 MG CAP PO SCH ×2 (08:24→21:31)
[2016-09-23] MEDS: LEVEMIR (INSULIN DETEMIR) 1 UNITS/0.01ML SC SCH ×2 (08:25→21:31)
[2016-09-23] MEDS ORDERED: FLEET ENEMA PR ONE (09:30)
[2016-09-23 09:35] LABS: ABG BASE EXCESS 5.1 (-2.0-2.0); ABG HCO3 30.8 MEQ/L (22.0-26.0); ABG PARTIAL PRESSURE CO2 50.4 mmHg (35.0-45.0); ABG PARTIAL PRESSURE O2 94.2 mmHg (75.0-100.0); ABG STANDARD HCO3 29.1 MEQ/L (22.0-26.0); ABG TOTAL CO2 32.3 MEQ/L (23.0-31.0); ABG pH (ARTERIAL) 7.404 UNITS (7.350-7.450)
[2016-09-23] MEDS: LIDOCAINE 5% OINT 30 GM TOP SCH ×3 (09:57→21:31)
--- NOTE | 2016-09-23 12:43 | IPN ---
DATE OF VISIT: 09/23/2016 Ms. Gallagher is seen this morning on her bedside in intensive care unit. Her daughter is present in the room. The patient remains on bilateral positive airway pressure (BiPAP) and has not been able to tolerate removal of it. Nursing staff reports that she lasted only a few minutes on nasal cannula. 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 She also has a history of diastolic congestive heart failure and chronic kidney disease. She had developed acute renal failure superimposed on chronic kidney disease with slight improvement in kidney function over the last couple of days. In the meantime, the patient remains quite restless and just does not feel well. On physical examination, an elderly obese lady who was using BiPAP mask. Temperature is 98.1 degrees Fahrenheit, heart rate 88 per minute, and respiratory rate 22 per minute. Blood pressure 168/87 mmHg and oxygen saturation 97% on BiPAP. Head is atraumatic. BiPAP mask is being used. Neck veins are difficult to be assessed. Heart sounds are irregular. Lungs have moderate bilateral air entry. Abdomen is obese and has generalized tenderness. Bowel sounds are present. Extremities: Have no cyanosis or clubbing at present. Skin is dry and without any rashes. Intake and output records from yesterday show total intake 1520 and output 1670 mL and negative fluid balance of only 150. Today's laboratories show WBC count 6.8, hemoglobin 10.8, and hematocrit 34.6. Platelets 269. Sodium 136 and potassium 4.4. CO2 36, BUN 95, and creatinine 2.40. A lactic acid level is now 2.5. Most recent blood gas showed a pH of 7.40, PCO2 of 50.4, and pO2 94. PROBLEMS: 1. Acute kidney injury superimposed on chronic kidney disease. The patient has atrophic right kidney with significant chronic kidney disease. Superimposed acute renal failure is gradually improving. She is not a dialysis candidate; and at this point, there is no indication for it. 2. Respiratory failure. 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 She does not seem to be making any progress. I do not feel that any significant volume overload is involved here. We will continue to hold her diuretics. 3. Lactic acidosis. I am concerned about possibility of ischemic bowel with generalized abdominal tenderness. The patient had two CAT scans of abdomen and pelvis done without intravenous (IV) contrast. She is not a suitable candidate for IV contrast due to acute and chronic kidney disease. Otherwise, her prognosis remains poor. I would suggest comfort measures and possible hospice care.
[2016-09-23] MEDS: methylPREDNISolone INJ 40 MG/1 ML VIAL (J2920) IV SCH (14:07)
--- NOTE | 2016-09-23 16:44 | IPNPDOC ---
Date Seen The patient was seen on 09/23/16. Progress Note Hospitalist Progress Note Subjective: Patient states she still feels like she can't breathe; nursing noted blood mixed in with her stool this morning Objective: Physical Exam: Vitals: Vital Sign - Last 24 Hours 09/22/16 09/22/16 09/22/16 09/22/16 19:13 19:13 20:00 20:04 Temp 98.9 Pulse 77 Resp 22 B/P 192/79 Pulse Ox 94 91 O2 Delivery BIPAP/CPAP BIPAP/CPAP NIPPV (BIPAP/CPAP) FiO2 35 35 35 35 09/22/16 09/22/16 09/22/16 09/23/16 20:22 21:10 21:24 00:00 Temp 98.2 Pulse 77 74 74 Resp B/P 192/79 181/85 181/85 173/72 Pulse Ox 93 97 O2 Delivery NIPPV (BIPAP/CPAP) NIPPV (BIPAP/CPAP) FiO2 35 35 09/23/16 09/23/16 09/23/16 09/23/16 01:42 04:00 05:53 08:00 Temp 99.1 98.1 Pulse 73 82 Resp B/P 174/77 174/77 168/87 Pulse Ox 96 97 O2 Delivery NIPPV (BIPAP/CPAP) Nasal Cannula O2 Flow Rate 3.0 FiO2 35 35 09/23/16 09/23/16 09/23/16 09/23/16 08:00 08:24 09:26 12:00 Temp 98.4 Pulse 87 80 Resp 20 B/P 168/87 161/86 Pulse Ox 96 O2 Delivery BIPAP/CPAP NIPPV (BIPAP/CPAP) FiO2 35 35 35 09/23/16 14:08 B/P 138/63 General: awake, alert, is mildly uncomfortable HEENT: Normocephalic, atraumatic, extraocular movements intact CV: Regular rate and rhythm Lungs: moving air, no wheeze appreciated Abd: Soft, diffuse tenderness to palpation, normal bowel sounds Extremities: 1+ edema at the bilateral lower extremities Neuro: Alert and oriented, normal speech Psych: anxious Labs and Imaging: Laboratory Tests 09/23/16 04:26 Calcium Level 8.9, Red Blood Count 3.91 L, Mean Corpuscular Volume 88.7, Mean Corpuscular Hemoglobin 27.7, Mean Corpuscular Hemoglobin Concent 31.2 L, Red Cell Distribution Width 16.3 H, Neutrophils (%) (Auto) 89.3 H, Lymphocytes (%) ( Auto) 3.8 L, Monocytes (%) (Auto) 5.7 H, Eosinophils (%) (Auto) 0.4, Basophils ( %) (Auto) 0.1, Neutrophils # (Auto) 6.1, Lymphocytes # (Auto) 0.3 L, Monocytes # (Auto) 0.4, Eosinophils # (Auto) 0.0, Basophils # (Auto) 0.0 Assessment and Plan: 85-year-old female with 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 She has also been found to have a UTI. 1. Acute on chronic diastolic CHF exacerbation: The patient is overall down in weight about 2.5 kgs. Given her kidney function, we have stopped lasix and aldactone at this time. Echocardiogram in May of last year showed an EF of 75% as well as grade 1 diastolic dysfunction. Appears to be euvolemic at this time. 2. Elevated troponin: The patient's troponin peaked at 0.26 and is now trending down. The patient denied any chest pain, and her EKG did not show any concerning changes. I suspect that this is secondary to strain from her acute CHF exacerbation. 3. UTI: The patient's urine culture grew Morganella. Now s/p 3 doses of Rocephin. She is currently afebrile with a normal white count. Blood cultures negative. Repeat Ucx still shows some morganella, so have started zosyn. 4. Acute on chronic kidney disease stage 3-4: The patient's baseline creatinine appears to be in the upper ones to two. Her creatinine upon admission was 2.24, and with diuresis, jumped up to 2.7. We have stopped all diuretics, and follow her kidney function closely. Nephrology following. Cr continues to improve today. 5. Diabetes mellitus type 2 complicated by peripheral neuropathy: Continue Levemir 10 units twice a day. This is a decrease from her home dose of 20 units in the morning, and 10 units in the evening. Also currently holding home short acting insulin that is usually administered at lunch time. We will continue sliding scale insulin while the patient is in-house. We also will continue the patient on her home Neurontin. 6. COPD, acute on chronic respiratory failure: Initially appeared to be having an exacerbation but did not show any improvement with steroids. Has been evaluated by Dr. Flower, who thinks she has obesity hypoventilation syndrome with dynamic airway compromise. She spent all day 09/[address] Flower adjusting the settings, and yesterday she was much improved. Today, however, she feels poorly again. This appears to be a terminal condition, as we cannot reverse her dynamic airway collapse, causing acute on chronic respiratory failure. Dr. Flower discussed PROGRAM ENGAGEMENT DIRECTOR with patient and daughter, but the patient is not ready for this, and thus, Dr. Flower has put her back on bipap all day today. She will need to wear bipap whenever she sleeps; new settings are 22/ 15. We'll continue her on her home Advair, as well as scheduled and when necessary DuoNeb's. Continue solumedrol, but start to wean. She uses 2 liters at home. 7. Hypertension: The patient's blood pressure has been quite uncontrolled. We' ll continue her home daily Norvasc as well as home Coreg. Hydralazine and isordil were started here. I also increased her home coreg, which seems to have helped a little. 8. Coronary artery disease status post stents, hyperlipidemia: Continue home baby aspirin, as well as home beta hamlet. The patient does not report taking a statin, however, this is something that should be further discussed with her outpatient physicians as she may benefit from starting this. 9. Abd TTP: has been present for several days now but no vomiting; two CT of the abd/pel are unremarkable. LFTs and lipase unremarkable. Quite possibly secondary to muscle fatigue from using so many accessory muscles while in respiratory distress. Also potentially complicated by constipation; will increase bowel regimen. Unfortunately, today she was noted to have some blood in her stool. Lactate is also elevated. We have considered the possibility of ischemic bowel, however, sending her for a CT would likely compromise her respiratory status at this time. Unfortunately, she cannot receive IV contrast given her kidney function, so it does not seem prudent to compromise her respiratory status for an exam that would not yield good information. In the event that she does have some ischemic bowel, she would be extremely poor surgical candidate. It is possible that her elevated lactate is secondary to her increased work of breathing. At this time, she will continue the zosyn, as this would cover any possible GI infection, and recheck lactate in the morning. DVT prophylaxis: Teds and SCDs Dispo: prognosis at this time is poor, as the dynamic airway collapse is not reversible; Dr. Flower discussed PROGRAM ENGAGEMENT DIRECTOR with patient and daughter but patient is not ready for this; in the interim, she will be on bipap; additionally, there is the possibility of ischemic bowel, but as noted above, the risks of diagnosing this and the limited options for intervention do not make it prudent to pursue imaging; continue to discuss goals of care with family VS, I&O, 24H, [place] Vital Signs/I&O Vital Signs Date Time Temp Pulse Resp B/P Pulse Ox O2 Delivery O2 Flow Rate FiO2 09/23/16 14:08 138/63 09/23/16 12:00 98.4 80 20 96 NIPPV (BIPAP/CPAP) 35 09/23/16 08:00 3.0 I&O- Last 24 Hours up to 6 AM 09/23/16 05:59 Intake Total 1330 ml Output Total 1495 ml Balance -165 ml Laboratory Data 24H LABS Laboratory Tests 2 09/22/16 17:34: Bedside Glucose (Misc Panel) 335H 09/22/16 21:13: Bedside Glucose (Misc Panel) 277H 09/22/16 23:37: Bedside Glucose (Misc Panel) 242H 09/23/16 04:26: Anion Gap 5L, White Blood Count 6.8, Red Blood Count 3.91L, Hemoglobin 10.8L, Hematocrit 34.6L, Mean Corpuscular Volume 88.7, Mean Corpuscular Hemoglobin 27.7 , Mean Corpuscular Hemoglobin Concent 31.2L, Red Cell Distribution Width 16.3H, Platelet Count 169, Neutrophils (%) (Auto) 89.3H, Lymphocytes (%) (Auto) 3.8L, Monocytes (%) (Auto) 5.7H, Eosinophils (%) (Auto) 0.4, Basophils (%) (Auto) 0.1 , Neutrophils # (Auto) 6.1, Lymphocytes # (Auto) 0.3L, Monocytes # (Auto) 0.4, Eosinophils # (Auto) 0.0, Basophils # (Auto) 0.0, Blood Urea Nitrogen 95H, Creatinine 2.40H, Sodium Level 136, Potassium Level 4.4, Chloride Level 95L, Carbon Dioxide Level 36H, Calcium Level 8.9, Glomerular Filtration Rate 20.5L, Large Unclassified Cells # 0.1, Large Unclassified Cells % 0.7, Magnesium Level 3.4H 09/23/16 05:47: Bedside Glucose (Misc Panel) 149H 09/23/16 09:31: Arterial Blood pH 7.404, Arterial Blood Partial Pressure CO2 50.4H, Arterial Blood Partial Pressure O2 94.2, Arterial Blood Total CO2 32.3H, Arterial Blood HCO3 30.8H, Arterial Blood Base Excess 5.1H, Arterial Blood Oxygen Saturation 97.3, Arterial Blood Gas Puncture Site RT RADIAL, Blood Gas Bicarbonate Standard 29.1H 09/23/16 09:56: Lactic Acid Level 2.5*H 09/23/16 11:50: Bedside Glucose (Misc Panel) 234H 09/23/16 14:07: Lactic Acid Followup at 4 Hours 2.3*H CBC/BMP Laboratory Tests 09/23/16 04:26 Calcium Level 8.9, Red Blood Count 3.91 L, Mean Corpuscular Volume 88.7, Mean Corpuscular Hemoglobin 27.7, Mean Corpuscular Hemoglobin Concent 31.2 L, Red Cell Distribution Width 16.3 H, Neutrophils (%) (Auto) 89.3 H, Lymphocytes (%) ( Auto) 3.8 L, Monocytes (%) (Auto) 5.7 H, Eosinophils (%) (Auto) 0.4, Basophils ( %) (Auto) 0.1, Neutrophils # (Auto) 6.1, Lymphocytes # (Auto) 0.3 L, Monocytes # (Auto) 0.4, Eosinophils # (Auto) 0.0, Basophils # (Auto) 0.0 Microbiology Microbiology 09/14/16 Blood Culture - Final, Complete NO GROWTH AFTER 5 DAYS 09/23/16 Stool Occult Blood ([facility]) - Final, Complete 09/21/16 Urine Culture - Final, Complete Morganella Morganii Ssp Wing 09/14/16 Urine Culture - Final, Complete Morganella Morganii Ssp Iwng BOLA PERKINS. E. Sep 23, 2016 16:44
[2016-09-23] MEDS: OMEPRAZOLE 20 MG CAP PO SCH (17:16)
[2016-09-24] VITALS (10 sets, daily range): BP systolic 140–185; BP diastolic 70–83; O2SAT 95
[2016-09-24] MEDS: IPRATROPIUM 0.5MG/ALBUTEROL 2.5MG INH SOL UD 3ML (DUONEB)(J7620) NEB SCH ×4 (01:18→19:30)
[2016-09-24] MEDS: methylPREDNISolone INJ 40 MG/1 ML VIAL (J2920) IV SCH ×2 (02:49→14:18)
[2016-09-24] MEDS: PIPERACILLIN/TAZOBACTAM SOD 2.25 GM in D5W MINI-BAG PLUS 50 ML IV SCH ×4 (04:46→21:50)
[2016-09-24 05:06] LABS: BASO % 0.1 % (0.0-1.0); EOS % 0.4 % (0.0-3.0); LARGE UNSTAINED CELL % 0.6 % (0.0-4.0); LYMPH # 0.3 K/mm3 (1.5-4.5); LYMPH % 4.9 % (24.0-44.0); MEAN CORPUSCULAR HEMOGLOBIN 29.2 pg (27.0-33.0); MEAN CORPUSCULAR VOLUME 88.4 fl (80.0-96.0); MONO # 0.4 K/mm3 (0.0-0.8); MONO % 6.4 % (0.0-5.0); NEUTROPHILS # 5.1 K/mm3 (1.8-7.7); NEUTROPHILS % 87.5 % (36.0-66.0); PLATELET COUNT, AUTOMATED 153 k/mm3 (150-450); RED CELL DISTRIBUTION WIDTH 15.9 % (11.5-14.5); WHITE BLOOD COUNT 5.8 K/mm3 (4.0-10.0)
[2016-09-24 05:28] LABS: CALCIUM LEVEL 8.5 MG/DL (8.8-10.2); CREATININE FOR GFR 2.26 MG/DL (0.55-1.02); GLOMERULAR FILTRATION RATE 21.9 (>32); MAGNESIUM LEVEL 3.3 MG/DL (1.8-2.4); POTASSIUM SERUM 4.3 MEQ/L (3.5-5.1)
[2016-09-24] MEDS: SLF 3 ML SYR IV SCH ×3 (06:00→21:51)
[2016-09-24] MEDS: **hydrALAZINE** 50 MG TAB PO SCH ×3 (06:18→21:50)
[2016-09-24] MEDS: ISOSORBIDE DIN (ISORDIL) 10 MG TAB PO SCH ×3 (06:19→21:50)
[2016-09-24] MEDS: HumaLOG INSULIN (NovoLOG) PER UNIT SC SCH ×4 (08:16→21:00)
[2016-09-24] MEDS: LEVEMIR (INSULIN DETEMIR) 1 UNITS/0.01ML SC SCH ×2 (08:16→21:50)
[2016-09-24] MEDS: CARVedilol 12.5 MG TAB PO SCH ×2 (08:17→21:51)
[2016-09-24] MEDS: amLODIPine 10 MG TAB PO SCH (08:17)
[2016-09-24] MEDS: FERROUS SULFATE 325MG TAB PO SCH (08:17)
[2016-09-24] MEDS: ASPIRIN 81 MG ENTERIC TAB PO SCH (08:17)
[2016-09-24] MEDS: GABAPENTIN 100 MG CAP PO SCH ×2 (08:17→21:50)
[2016-09-24] MEDS: SENOKOT S TAB PO SCH (08:17)
[2016-09-24] MEDS: LIDOCAINE 5% OINT 30 GM TOP SCH ×3 (08:18→21:51)
[2016-09-24] MEDS: ADVAIR DISKUS 250/50 INH PWD INH SCH ×2 (09:53→19:30)
--- NOTE | 2016-09-24 11:29 | IPN ---
DATE: 09/24/2016 85-year-old female seen sitting at bedside this morning. She states that she continues to be short of breath with little improvement, but she denies productive sputum, hemoptysis. No nausea, vomiting, and no abdominal pain. OBJECTIVE: Temperature is 98.1, pulse is 63, respiratory rate is 22, blood pressure is 166/70, SpO2 is 91% on BiPAP, FiO2 of 35%. GENERAL: The patient appears to be in no acute distress. She is able to speak in five to six word sentences. HEENT: Unremarkable. She is alert. LUNGS: Diminished bibasilar breath sounds, prolonged expiratory phase with occasional expiratory wheeze but breath sounds do appear to be distant in both lung schulz. HEART: Regular rate and rhythm. ABDOMEN: Obese, soft, nontender, nondistended with positive bowel sounds. No masses. No rebound. EXTREMITIES: No edema. No calf tenderness. LABORATORY DATA: White count is 5.8, hemoglobin 11, platelets 153,000. Sodium is 135, potassium 4.3, chloride 94, bicarb 32, anion gap 9, BUN 90, creatinine 2.26, glucose is 231, lactic acid tube 1.2. ASSESSMENT/PLAN: 1. Acute on chronic diastolic congestive heart failure. Lasix and aldactone has been held. Her echo in May did show an ejection fraction of 75% with grade 1 diastolic dysfunction. She appears to be euvolemic at this time. 2. Elevated Troponin. Trending downward. EKG did not show any changes. This is likely resulting from her acute CHF exacerbation. 3. Chronic obstructive pulmonary disease (COPD), acute on chronic respiratory failure. She does appear to be more end-stage at this point. She does have obesity hypoventilation syndrome with dynamic airway compromise. Dr. Flower did have a detailed discussion regarding MANUFACTURING MAINTENANCE TECHNICIAN with the patient and her daughter, however the patient did not appear to be ready at this point and she continues on BiPAP. Dr. Hernandez has assumed care for pulmonology and will continue to address these issues with him and the family and appreciate pulmonology input as well. 4. Urinary tract infection. Urine culture grew Morganella. She is currently on Zosyn. She is afebrile. No signs of sepsis. 5. Acute on chronic kidney disease with history of stage III-IV CKD. Apprec[address] Dr. Stuart's input and guidance. 6. Hypertension. Will see if we can make some further adjustments in her blood pressure medications. 7. Coronary artery disease status post stent placement with history of hyperlipidemia. Continue on baby aspirin, beta hamlet. She is not currently on any statin. This could be discussed further with her outpatient provider. 8. Diabetes type 2 complicated by peripheral neuropathy. Continue with insulin coverage. Also on Neurontin for the neuropathy. Continue with fingersticks and sliding scale coverage. Consistent carbohydrate diet. 7. Abdominal discomfort. Her workup has been unremarkable so far. I was unable to do a CT of the abdomen and pelvis with IV contrast due to her kidney function. This does appear to be improving and it is likely due to muscle strain from the work of breathing. She does continue on broad-spectrum antibiotic coverage with Zosyn. Again lactate does appear to be trending downward. I am less concerned with ischemic bowel at this point. 8. Deep vein thrombosis (DVT) prophylaxis. Thromboembolic deterrent stockings (TEDS) and sequentials. DISPOSITION: Her prognosis is quite poor at this point with dynamic airway collapse, which is not reversible. Appreciate pulmonology input and will continue to have ongoing discussions regarding advance directives and end of life care, as well as discussing ongoing goals with her and her family. Will offer a hospice consult to patient tomorrow for educational purposes. I spoke with her daughter and she as well is comfortable with the current course of action as well. DENNIS
[2016-09-24] MEDS: OMEPRAZOLE 20 MG CAP PO SCH (17:05)
--- NOTE | 2016-09-24 21:25 | IPN ---
DATE: 09/24/2016 Ms. Gallagher is seen this morning on her bedside in intensive care unit. She remains on BiPAP. At present she is resting comfortably. She is not able to tolerate nasal cannula and has been dependent on BiPAP. PHYSICAL EXAMINATION: Temperature 98.1 degrees Fahrenheit, heart rate 64 per minute and respiratory rate 22 per minute. Blood pressure 185/83 mmHg and oxygen saturation is 94% on 35% oxygen. Intake and output records from yesterday showed total intake 990 and output 1640 mL. Her weight is essentially unchanged. Head is atraumatic. Neck veins are difficult to be assessed. She is using BiPAP mask. Heart sounds are regular. Lungs have moderate bilateral air entry. Abdomen is obese and tender. Bowel sounds are present. Extremities have no cyanosis or clubbing. Skin has no rash or ulcers. Today's labs show WBC count 5.8, hemoglobin 11.0 and hematocrit 33.3. Sodium 135 and potassium 4.3. BUN 90 and creatinine 2.26. Glucose 231 and calcium 8.5. PROBLEMS: 1. Acute renal failure superimposed on chronic kidney disease. Slight improvement in kidney function is noted. She has only one functioning kidney and right kidney is severely atrophic. At present no intervention is indicated and kidney function is improving spontaneously. 2. Congestive heart failure. She had mild hypervolemia and she is diuresing spontaneously. She has been off diuretics. Volume status is reasonably well-compensated. 3. Respiratory failure. 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 Prognosis remains poor and she remains BiPAP dependent. 4. Abdominal tenderness and lactic acidosis. She had mild lactic acidosis. Her abdominal tenderness persists. She is not a suitable candidate for IV contrast due to risk of complete renal failure. In view of her poor overall prognosis we will not pursue a CT scan of abdomen with IV contrast. Today her lactic acid level has improved to 1.2 anyway.
[2016-09-24] MEDS: ACETAMINOPHEN TAB 650MG DOSE (2X325MG) PO PRN (22:02)
[2016-09-25] VITALS: BP 144/63
[2016-09-25] MEDS: IPRATROPIUM 0.5MG/ALBUTEROL 2.5MG INH SOL UD 3ML (DUONEB)(J7620) NEB SCH ×2 (02:00→07:21)
[2016-09-25] MEDS: methylPREDNISolone INJ 40 MG/1 ML VIAL (J2920) IV SCH (02:00)
[2016-09-25 04:00] VITALS: BP 175/76
[2016-09-25] MEDS: PIPERACILLIN/TAZOBACTAM SOD 2.25 GM in D5W MINI-BAG PLUS 50 ML IV SCH (04:44)
[2016-09-25 05:12] LABS: BASO % 0.1 % (0.0-1.0); EOS % 0.1 % (0.0-3.0); LARGE UNSTAINED CELL % 0.4 % (0.0-4.0); LYMPH # 0.3 K/mm3 (1.5-4.5); LYMPH % 4.3 % (24.0-44.0); MEAN CORPUSCULAR HEMOGLOBIN 27.9 pg (27.0-33.0); MEAN CORPUSCULAR HGB CONC 31.5 g/dl (32.0-36.5); MEAN CORPUSCULAR VOLUME 88.8 fl (80.0-96.0); MONO # 0.3 K/mm3 (0.0-0.8); MONO % 4.8 % (0.0-5.0); NEUTROPHILS # 6.2 K/mm3 (1.8-7.7); NEUTROPHILS % 90.3 % (36.0-66.0); PLATELET COUNT, AUTOMATED 164 k/mm3 (150-450); RED CELL DISTRIBUTION WIDTH 15.9 % (11.5-14.5); WHITE BLOOD COUNT 6.9 K/mm3 (4.0-10.0)
[2016-09-25 05:33] LABS: CALCIUM LEVEL 8.4 MG/DL (8.8-10.2); CREATININE FOR GFR 2.11 MG/DL (0.55-1.02); GLOMERULAR FILTRATION RATE 23.8 (>32); MAGNESIUM LEVEL 3.1 MG/DL (1.8-2.4); POTASSIUM SERUM 4.1 MEQ/L (3.5-5.1)
[2016-09-25] MEDS: SLF 3 ML SYR IV SCH (06:00)
[2016-09-25 06:27] VITALS: BP 185/85
[2016-09-25] MEDS: ISOSORBIDE DIN (ISORDIL) 10 MG TAB PO SCH (06:29)
[2016-09-25] MEDS: **hydrALAZINE** 50 MG TAB PO SCH (06:29)
[2016-09-25] MEDS: ADVAIR DISKUS 250/50 INH PWD INH SCH (07:20)
[2016-09-25 08:00] VITALS: BP 162/72
[2016-09-25] MEDS ORDERED: LORazepam 2 MG/ML VIAL (J2060) IV PRN (08:45)
[2016-09-25] MEDS ORDERED: PERCOCET 5MG/325MG TAB PO PRN ×2 (08:45)
[2016-09-25] MEDS: HumaLOG INSULIN (NovoLOG) PER UNIT SC SCH (08:55)
[2016-09-25] MEDS: CARVedilol 12.5 MG TAB PO SCH (08:56)
[2016-09-25] MEDS: ASPIRIN 81 MG ENTERIC TAB PO SCH (08:56)
[2016-09-25] MEDS: FERROUS SULFATE 325MG TAB PO SCH (08:56)
[2016-09-25 08:57] VITALS: BP 162/72
[2016-09-25] MEDS: amLODIPine 10 MG TAB PO SCH (08:57)
[2016-09-25] MEDS: GABAPENTIN 100 MG CAP PO SCH (08:57)
[2016-09-25] MEDS: SENOKOT S TAB PO SCH (08:58)
[2016-09-25] MEDS: LIDOCAINE 5% OINT 30 GM TOP SCH (08:58)
--- NOTE | 2016-09-25 09:00 | IPN ---
DATE: 09/25/2016 85-year-old female seen at bedside. She is in some discomfort with rib pain. She does feel intermittently short of breath. She has been able tolerate being off of BiPAP for the last 15-20 minutes. We did have a discussion at bedside that will follow in the note below regarding advance directives OBJECTIVE: Temperature is 98.3, pulse 66, respiratory rate 16, blood pressure 175/76, SpO2 is 98% on BiPAP with FiO2 of 35%. GENERAL: The patient is tearful. She does describe being in some discomfort with her rib pain, has some intermittent shortness of breath, but she is alert, pleasant, otherwise and able to speak in complete sentences. HEENT: Unremarkable. LUNGS: Diminished breath sounds throughout the entire lung schulz. HEART: Regular rate and rhythm. ABDOMEN: Obese, soft. EXTREMITIES: No edema. LABORATORY DATA: White count is 6.9, hemoglobin 10.8, platelets are 164. Sodium 138, potassium 4.1, chloride 97, bicarb 33, anion gap 8, BUN is 80, creatinine 2.11, glucose 204. ASSESSMENT/PLAN: 1. Acute on chronic diastolic congestive heart failure. She does appear to be closer to euvolemic at this time. 2. Acute respiratory failure superimposed on chronic obstructive pulmonary disease with lower airway collapse and obesity and hypoventilation syndrome with dynamic airway compromise, as indicated previously by Dr. Flower. The patient's daughter is present at bedside. We did have a lengthy discussion regarding advance directives and the patient did give us verbal permission to proceed with comfort measures. The patient's daughter, Mariama, who was present did witness along with one of the nurses and will institute comfort measures. 3. Elevated troponin with no EKG changes. Again, this is likely secondary to her congestive heart failure (CHF) exacerbation. 4. Urinary tract infection. She has completed three days of Zosyn, which we will discontinue at this point. No signs of sepsis. 5. Acute on chronic kidney disease stage III/IV. 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 6. Hypertension. 7. Coronary disease status post stent placement. 8. Diabetes. 9. Deep vein thrombosis (DVT) prophylaxis. She has currently been on thromboembolic deterrent stockings (TEDS) and sequentials. DISPOSITION: Per the discussion we had above, with her comorbidities, dynamic airway which is irreversible, and the patient's healthcare proxy present at bedside, the patient did elect to proceed with ROPE MAKING MACHINE OPERATOR orders. I did speak with Dr. Hernandez about her BiPAP settings for comfort, which we will proceed with and a hospice consult was placed. For pain control, I did start her on some Percocet per the patient and her daughter's request, Ativan as needed and will try to make some gradual changes as well with her meds as needed for comfort.
[2016-09-25] MEDS: LEVEMIR (INSULIN DETEMIR) 1 UNITS/0.01ML SC SCH (09:14)
[2016-09-25] MEDS ORDERED: PERCOCET PO (10:28)
[2016-09-25] MEDS ORDERED: MORP20SO PO (10:28)
--- NOTE | 2016-09-28 17:34 | DSES ---
DATE OF ADMISSION: 09/14/2016 DATE OF DISCHARGE: 09/28/2016 PRIMARY CARE PROVIDER: Dr. Bernstein CONSULTANTS: Dr. Flower, Dr. Stuart PROCEDURES: None. COMPLICATIONS: None. ADMISSION/DISCHARGE DIAGNOSES: 1. Shortness of breath, likely secondary to congestive heart failure; acute hypoxic respiratory failure requiring bilevel positive airway pressure (BiPAP). 2. 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 3. Diabetes. 4. Dementia. 5. Chronic kidney disease (CKD). 6. Hyperlipidemia. 7. Hypertension. 8. History of coronary artery disease. BRIEF HOSPITAL COURSE: Ms. Gallagher is a pleasant 85-year-old female who presented to the emergency department on 09/14/2016 with increasing shortness of breath which has been progressively worsening for two days. She did have some lower extremity swelling, history of diastolic congestive heart failure, elevated brain natriuretic peptide (BNP), and elevated troponin, admitted under the hospitalist service and eventually transferred to the intensive care unit (ICU), requiring bilevel positive airway pressure (BiPAP) and noninvasive positive pressure ventilation (NPPV), with showing some hypercarbia. She did improve while she was on the NPPV; however, when she would come off, she would desaturate and over the course of the week and a half that she was in the hospital, she did have a discussion with multiple providers concerning her quality of life and end-of-life discussions. Dr. Stuart as well had been consulted on this patient regarding acute renal failure superimposed on chronic kidney disease, which she did show some complications from trying to balance diuretics to assist with her volume overload status versus kidney failure. On 09/25/2016, I had a discussion with the patient and the patient's daughter, present at bedside, regarding her comorbidities, dynamic airway issues, healthcare proxy, and no DO NOT RESUSCITATE/DO NOT INTUBATE orders. She did eventually requested we put her on orders for COMFORT MEASURES ONLY. She stated that she wanted to have time visit to visit with her grandkids and thought the best course of action for herself was to be transferred back to the longterm for further care there, with being on comfort measures. She was treated briefly for three days on Zosyn for urinary tract infection, so symptoms did resolve and on day of discharge she was changed status to COMFORT MEASURES ONLY and her medical orders for life-sustaining treatment (MOLST) form was updated. Further information regarding intake, physical, labs, diagnostics, please refer the history and physical (H P) and consults by Dr. Flower and Dr. Stuart. DISCHARGE CONDITION: She is in poor health with poor prognosis. DISPOSITION: She was discharged back to the longterm. DISCHARGE MEDICATIONS: - morphine sulfate 5 mg sublingual every 2 hours as needed - Percocet 1-2tablets every 4-6 hours as needed for pain - Tylenol 6-50 mg every 4 hours as needed for fever - albuterol inhaler for symptom relief. - oxygen supplementation for comfort. - She did elect to continue on the allopurinol 100 mg daily as well as Dulcolax as needed constipation - Zostrix cream as needed for pain - Senna for constipation - Fleet's enema daily as needed for constipation - gabapentin 100 mg twice a day - milk of magnesia 30 mL daily as needed for constipation - omeprazole 40 mg for acid reflux and heartburn - Advair Diskus 250/50 one inhalation twice a day - Senna two tablets at bedtime as needed DISCHARGE INSTRUCTIONS: Discharge back to [facility]. Continue on regular diet. Activity as tolerated. Oxygen for comfort. Medical orders for life-sustaining treatment (MOLST) form was updated to reflect her change to COMFORT MEASURES ONLY status.
== END 2016-09-25 12:10 | DRG 291 ==
LOC: EDBD 11:16 → M ED 13:12 → M ED INP 15:27 → M ICU 22:47 → M PCU 09-19 14:19 → M ICU 09-21 10:30
PROVIDERS: ADMIT Internal Medicine; ATTEND Hospitalist
DX: I50.33 Acute on chronic diastolic (congestive) heart failure (principal); G93.41 Metabolic encephalopathy; J96.01 Acute respiratory failure with hypoxia; N18.4 Chronic kidney disease, stage 4 (severe); N39.0 Urinary tract infection, site not specified; N17.9 Acute kidney failure, unspecified; E87.2 Acidosis; E11.40 Type 2 diabetes mellitus with diabetic neuropathy, unspecified; J44.9 Chronic obstructive pulmonary disease, unspecified; I25.10 Atherosclerotic heart disease of native coronary artery without angina pectoris; I12.9 Hypertensive chronic kidney disease with stage 1 through stage 4 chronic kidney disease, or unspecified chronic kidney disease; E87.70 Fluid overload, unspecified; F03.90 Unspecified dementia, unspecified severity, without behavioral disturbance, psychotic disturbance, mood disturbance, and anxiety; Z66 Do not resuscitate; Z51.5 Encounter for palliative care; Z79.899 Other long term (current) drug therapy; Z87.891 Personal history of nicotine dependence; Z79.82 Long term (current) use of aspirin; Z79.4 Long term (current) use of insulin; Z79.52 Long term (current) use of systemic steroids; D64.9 Anemia, unspecified; E83.42 Hypomagnesemia